=== PATIENT | male | born 1995 | race Caucasian/White ===

== ENCOUNTER 2020-02-20 14:12 | Outpatient (REF) | payer OTHER, SELFPAY | END 2020-02-20 14:13 | disposition home or self-care (01) | LOC: HO.HMGCLDS 14:12 | PROVIDERS: PCP Internal Medicine; Visit Provider Internal Medicine | DX: Z20.828 Contact with and (suspected) exposure to other viral communicable diseases (principal) | CPT/HCPCS: C9803; U0003 ==

== ENCOUNTER 2020-11-05 14:28 | Outpatient (REF) | payer OTHER, SELFPAY ==
[2020-11-05 15:27] LABS: Hematocrit 44.6 % (42-52); Hemoglobin 15.2 g/dl (14.0-18.0); Mean Corpuscular HGB Conc 34.1 g/dl (31.0-36.0); Mean Corpuscular Hemoglobin 29.9 pg (27.0-33.0); Mean Corpuscular Volume 87.8 fL (80-98); Mean Platelet Volume 9.6 fL (9.4-12.4); Platelet Count 264 X10*3/uL (160-400); Red Blood Count 5.08 X10*6/uL (4.60-5.80); Red Cell Distribution Width 12.1 % (11.0-16.0); White Blood Count 4.8 X10*3/uL (4.8-10.8)
[2020-11-05 15:48] LABS: Alanine Aminotransferase 28 U/L (0-40); Albumin Level 4.6 g/dL (3.5-5.0); Alkaline Phosphatase 62 U/L (39-117); Anion Gap 12 (12-20); Aspartate Amino Transferase 25 U/L (5-37); Bilirubin Direct 0.3 mg/dL (0.0-0.5); Bilirubin Total 0.8 mg/dL (0.0-1.0); Blood Urea Nitrogen 10 mg/dL (9-16); Calcium 10.1 mg/dL (8.4-10.2); Carbon Dioxide 30 mmol/L (22-29); Chloride 106 mmol/L (96-108); Estimated Glomerular Filt Rate > 60; Glucose Random 95 mg/dL (60-115); Potassium 5.5 mmol/L (3.3-5.1); Sodium 142 mmol/L (135-145); Total Protein 7.3 g/dL (6.5-8.0)
[2020-11-05 15:54] LABS: Glucose Urine UA NEG (NEG); Leukocyte Esterase Urine NEG (NEG); Nitrite Urine NEG (NEG); Specific Gravity - Urine >= 1.030 (1.005-1.025); UACC Culture Trigger NO; Urine Blood NEG (NEG); Urine Ketones NEG (NEG); Urine Protein 1+ MG/DL (NEG-TRACE)
[2020-11-05 15:57] LABS: Appearance Urine HAZY; Color Urine DARK YELLOW
[2020-11-05 16:01] LABS: Bacteria Urine TRACE /LPF; Mucus Urine 3+ /LPF; RBC Urine 0-2 /HPF (0); Sperm Urine NOTED; Squamous Epithelial Cell Urine TRACE /LPF; WBC Urine 0 /HPF (0-4)
[2020-11-06 08:16] LABS: HBc Num1 0.18 S/CO (0.00-0.79); HBsAGNum1 0.19 S/CO (0.00-0.99); Hepatitis B Core Antibody Nonreactive (Nonreactive); Hepatitis B Surface Antigen Negative (Negative); ~HepC Num1 0.11 S/CO (0.00-0.79); ~Hepatitis C Antibody Nonreactive (Nonreactive)
[2020-11-06 08:30] LABS: HBS Num1 1.26 mIU/mL (0-7.99); ~Hepatitis B Surface Antibody NONREACTIVE (Nonreactive)
== END 2020-11-05 14:29 | disposition home or self-care (01) ==
LOC: HO.XRAY 14:28
PROVIDERS: PCP Physician Assistant; Visit Provider Physician Assistant
DX: Z01.84 Encounter for antibody response examination (principal); Z11.59 Encounter for screening for other viral diseases; Z11.3 Encounter for screening for infections with a predominantly sexual mode of transmission; R10.9 Unspecified abdominal pain; I10 Essential (primary) hypertension
CPT/HCPCS: 36415; 80048; 80076; 81001; 85027; 86704; 86706; 86803; 87340

== ENCOUNTER 2022-04-21 15:14 | Emergency (ER) | payer OTHER, SELFPAY ==
--- NOTE | ~2022-04-21 | XR_ITS ---
EXAMINATION: XR CHEST CLINICAL INFORMATION: Shortness of breath COMPARISON: X-ray 05/19/2019 TECHNIQUE: 2 views of the chest were obtained. FINDINGS: Cardiomediastinal silhouette is within normal limits. Central vasculature is within normal limits, similar to previous. There is hazy opacity in the medial aspect of the right lung base, which may reflect infiltrate. No dense consolidation left lung. No effusion, edema or pneumothorax. Mild dorsal spine degeneration. XR/XR chest 2V IMPRESSION: Hazy opacity in the medial aspect of the right lung base, could represent developing airspace disease. Recommendation is for a follow-up chest series to be obtained following treatment and/or resolution of symptoms to assure resolution of this appearance.
--- NOTE | 2022-04-21 15:31 | ECG_ITS ---
Test Reason : DIZZINESS Blood Pressure : / mmHG Vent. Rate : 079 BPM Atrial Rate : 079 BPM P-R Int : 140 ms QRS Dur : 090 ms QT Int : 364 ms P-R-T Axes : 062 078 034 degrees QTc Int : 417 ms Normal sinus rhythm with sinus arrhythmia Normal ECG No previous ECGs available Referred By: Odessa Hawkins Electronically Signed By:ARGENIS FUNEZ
--- NOTE | 2022-04-21 15:32 | ED.GENADULT ---
HPI - General Adult General Chief complaint: General Medical Stated complaint: SOB Dizzy Weak Time Seen by Provider: 04/21/22 22:11 Related Data Previous Rx's Medication Instructions Recorded albuterol sulfate 90 mcg/actuation 2 puff inhalation Q6H PRN 07/04/21 aerosol inhaler (ProAir HFA) shortness of breath or wheezing 30 days #8.5 grams lorazepam 1 mg tablet (Ativan) 1 mg PO BEDTIME PRN anxiety #20 04/21/22 tabs meclizine 25 mg tablet 25 mg PO TID 7 days #21 tabs 04/23/22 Allergies Allergy/AdvReac Type Severity Reaction Status Date / Time stone fruit Allergy Swelling Uncoded 04/23/22 11:14 [facility] Past Medical History Medical History Anxiety Dyspnea Major depressive disorder Surgical History No pertinent past surgical history Family History Family History Father No problems noted. Mother Multiple sclerosis Other Substance use disorder Social History Social History Housing: Apartment Alcohol intake: current Alcohol intake frequency: holidays/special occasions only Alcohol type: beer, wine and hard liquor Patient Tobacco Use Status: Former Tobacco user (one year) Quit Date: one year ago Tobacco use type: Smokeless Tobacco e-Cigarette/Vaping Use: Currently Using Second Hand Smoke Exposure: No Substance Use Type: Marijuana service: No Current occupational status: unemployed Cognitive needs: No Hearing needs: No Vision needs: No Physical Exam ED Vital Signs: BMI result Body Mass Index 24.3 Course Course Course Narrative: RME - 27 yo male with history of asthma, anxiety, depression, ADD presenting with acute onset of feeling like he was going to pass out while he was standing at work talking with a coworker. Feels lightheaded, like the room is spinning, dizziness, SOB, palpitations. Was dizzy all week. Feels like symptoms are worsening. VSS in triage. Labs and EKG ordered. Medications Administered Discontinued Medications Generic Name Dose Route Start Last Admin Trade Name Freq PRN Reason Stop Dose Admin Lorazepam 0.5 mg 04/21/22 22:23 04/21/22 22:34 Lorazepam 0.5 Mg Tablet PO 04/21/22 22:24 Not Given ONCE ONE Medical Decision Making Lab Data 04/21/22 17:09 04/21/22 17:09 Labs: Lab Results 04/21/22 04/21/22 Range/Units 17:09 17:09 WBC 10.7 (4.8-10.8) X10*3/uL RBC 5.59 (4.60-5.80) X10*6/uL Hgb 16.4 (14.0-18.0) g/dl Hct 48.1 (42.0-52.0) % MCV 86.0 (80.0-98.0) fL MCH 29.3 (27.0-33.0) pg MCHC 34.1 (31.0-36.0) g/dl RDW 12.1 (11.0-16.0) % Plt Count 318 (160-400) X10*3/uL MPV 9.6 (9.4-12.4) fL Immature Gran % (Auto) 0.9 H (0.0-0.4) % Neut % (Auto) 79.2 H (45-73) % Lymph % (Auto) 11.0 L (20-40) % [place] % (Auto) 7.2 (2-11) % Eos % (Auto) 1.0 (0-4) % Baso % (Auto) 0.7 (0-2) % Lymph # (Auto) 1.2 (1.2-4.9) X10*3/uL [place] # (Auto) 0.8 (0.1-1.2) X10*3/uL Eos # (Auto) 0.1 (0.0-0.4) X10*3/uL Baso # (Auto) 0.1 (0.0-0.2) X10*3/uL Abs Immat Gran (auto) 0.10 H (0.00-0.03) X10*3/uL Absolute Neuts (auto) 8.5 H (2.0-8.3) x10*3/uL Absolute Nucleated RBC 0.000 (0.0-0.012) X10*3/uL Nucleated RBC % (auto) 0.0 (0.0-0.2) /100WBC Sodium 140 (135-145) mmol/L Potassium 4.8 (3.3-5.1) mmol/L Chloride 102 (96-108) mmol/L Carbon Dioxide 29 (22-29) mmol/L Anion Gap 14 (12-20) BUN 11 (9-16) mg/dL Creatinine 0.83 (0.5-1.4) mg/dL Estim Creat Clear Calc 139.2 Estimated GFR > 60 Random Glucose 91 (60-115) mg/dL Calcium 10.0 (8.4-10.2) mg/dL Magnesium 2.0 (1.6-2.6) mg/dL Total Bilirubin 0.7 (0.0-1.0) mg/dL Direct Bilirubin 0.2 (0.0-0.5) mg/dL AST 22 (5-37) U/L ALT 22 (0-40) U/L Alkaline Phosphatase 79 (39-117) U/L Total Protein 7.4 (6.5-8.0) g/dL Albumin 4.7 (3.5-5.0) g/dL TSH 1.58 (0.32-4.0) uIU/mL Discharge Plan Discharge Clinical Impression: Anxiety Patient Disposition: Home, Self-Care Instructions: Generalized Anxiety Disorder (ED) Additional Instructions: Rest at home take medication as prescribed every night as needed for sleep and anxiety Follow-up with PCP Prescriptions: New lorazepam [Ativan] 1 mg tablet 1 mg PO BEDTIME PRN (Reason: anxiety) Qty: 20 0RF No Action albuterol sulfate [ProAir HFA] 90 mcg/actuation HFA aerosol inhaler 2 puff inhalation Q6H PRN (Reason: shortness of breath or wheezing) 30 Days Qty: 8.5 2RF Rx Instructions: 2 puffs every 6 hrs as needed for shortness of breath meclizine 25 mg tablet 25 mg PO TID 7 Days Qty: 21 0RF Interventions: ED Discharge Assessment Last Done: 04/21/22 22:37 Discharge Date/Time: 04/21/22 22:39
[2022-04-21 15:33] VITALS: BP 144/80; PULSE 80; RESP 20; TEMP 36.2; O2SAT 100; BMI 24.3
[2022-04-21 17:25] LABS: MANUAL DIFF FLAG NO
[2022-04-21 17:43] LABS: Basophils Absolute Auto 0.1 X10*3/uL (0.0-0.2); Basophils Percent Auto 0.7 % (0-2); Eosinophils Absolute Auto 0.1 X10*3/uL (0.0-0.4); Hematocrit 48.1 % (42.0-52.0); Hemoglobin 16.4 g/dl (14.0-18.0); Imm Gran Pct Auto 0.9 % (0.0-0.4); Lymphocytes Absolute Auto 1.2 X10*3/uL (1.2-4.9); Mean Corpuscular HGB Conc 34.1 g/dl (31.0-36.0); Mean Corpuscular Hemoglobin 29.3 pg (27.0-33.0); Mean Platelet Volume 9.6 fL (9.4-12.4); Monocytes Absolute Auto 0.8 X10*3/uL (0.1-1.2); Monocytes Percent Auto 7.2 % (2-11); Neutrophils Absolute Auto 8.5 x10*3/uL (2.0-8.3); Neutrophils Percent Auto 79.2 % (45-73); Platelet Count 318 X10*3/uL (160-400); Red Blood Count 5.59 X10*6/uL (4.60-5.80); Red Cell Distribution Width 12.1 % (11.0-16.0); White Blood Count 10.7 X10*3/uL (4.8-10.8)
[2022-04-21 17:54] LABS: Alanine Aminotransferase 22 U/L (0-40); Albumin Level 4.7 g/dL (3.5-5.0); Alkaline Phosphatase 79 U/L (39-117); Anion Gap 14 (12-20); Aspartate Amino Transferase 22 U/L (5-37); Bilirubin Direct 0.2 mg/dL (0.0-0.5); Bilirubin Total 0.7 mg/dL (0.0-1.0); Blood Urea Nitrogen 11 mg/dL (9-16); Carbon Dioxide 29 mmol/L (22-29); Chloride 102 mmol/L (96-108); Creatinine Clr Calc Pharmacy 139.2; Estimated Glomerular Filt Rate > 60; Glucose Random 91 mg/dL (60-115); Potassium 4.8 mmol/L (3.3-5.1); Sodium 140 mmol/L (135-145); Total Protein 7.4 g/dL (6.5-8.0)
[2022-04-21 18:07] LABS: TSH reflex Free T4 1.58 uIU/mL (0.32-4.0)
[2022-04-21 21:11] VITALS: BP 134/72; PULSE 72; RESP 16; TEMP 36.8; O2SAT 100
--- NOTE | 2022-04-21 22:27 | ED.GENADULT ---
HPI - General Adult General Chief complaint: General Medical Stated complaint: SOB Dizzy Weak Time Seen by Provider: 04/21/22 22:11 Source: patient Mode of arrival: ambulatory History of Present Illness HPI narrative: Patient with history of anxiety was at work earlier today felt dizzy shaky anxious felt like passing out. Patient denied any cough or fever patient was seen in the triage and level was done which was negative saturating 100% on room air patient has been seen by his PCP earlier and was given Atarax which is not working Related Data Previous Rx's Medication Instructions Recorded albuterol sulfate 90 mcg/actuation 2 puff inhalation Q6H PRN 07/04/21 aerosol inhaler (ProAir HFA) shortness of breath or wheezing 30 days #8.5 grams hydroxyzine HCl 25 mg tablet 25 mg PO BEDTIME 30 days #30 tabs 09/15/21 lorazepam 1 mg tablet (Ativan) 1 mg PO BEDTIME PRN anxiety #20 04/21/22 tabs Allergies Allergy/AdvReac Type Severity Reaction Status Date / Time stone fruit Allergy Swelling Uncoded 04/21/22 15:35 Review of Systems Review of Systems: Yes all other systems are reviewed and are negative [facility] Past Medical History Medical History Anxiety Dyspnea Major depressive disorder Surgical History No pertinent past surgical history Family History Family History Father No problems noted. Mother Multiple sclerosis Other Substance use disorder Social History Social History Housing: Apartment Alcohol intake: current Alcohol intake frequency: holidays/special occasions only Alcohol type: beer, wine and hard liquor Patient Tobacco Use Status: Former Tobacco user (one year) Quit Date: one year ago Tobacco use type: Smokeless Tobacco Smoked in Last 30 Days: Yes e-Cigarette/Vaping Use: Currently Using Second Hand Smoke Exposure: No Use of substances other than those prescribed or required for medical reasons: Yes Substance Use Type: Marijuana Substance Use Frequency: Daily Advance Directives: No Advance Directives Information Provided: Yes service: No Current occupational status: unemployed Cognitive needs: No Hearing needs: No Vision needs: No Physical Exam ED Vital Signs: Vital Signs - 24 hr 04/21/22 15:33 04/21/22 21:11 Temperature 97.1 F 98.3 F Pulse Rate 80 72 Respiratory Rate 20 16 Blood Pressure 144/80 H 134/72 Pulse Oximetry 100 100 Oxygen Delivery Method Room Air Room Air BMI result Body Mass Index 24.3 Appearance: Alert. Oriented X3. No acute distress. Anxious Eyes: PERRLA, No Nystagmus ENT: Pharynx normal. Oral Mucosa moist Neck: Normal inspection. Neck supple. CVS: Normal heart rate and rhythm. Pulses normal. Respiratory: No respiratory distress. Equal air entry bilateral, no wheezing/rales/rhonchi Abdomen: Soft and nontender. Bowel sounds are present, no mass palpable, no CVA tenderness Skin: Skin warm and dry. Normal skin color. Normal skin turgor. Extremities: No lower extremity edema. No calf tenderness Neuro: Oriented X 3. No motor deficit. No sensory deficit.No cerebellar signs , cranial nerves II-XII intact Medical Decision Making Lab Data MDM Lab Attestation statement: I reviewed the patient's lab results. 04/21/22 17:09 04/21/22 17:09 Labs: Lab Results 04/21/22 04/21/22 Range/Units 17:09 17:09 WBC 10.7 (4.8-10.8) X10*3/uL RBC 5.59 (4.60-5.80) X10*6/uL Hgb 16.4 (14.0-18.0) g/dl Hct 48.1 (42.0-52.0) % MCV 86.0 (80.0-98.0) fL MCH 29.3 (27.0-33.0) pg MCHC 34.1 (31.0-36.0) g/dl RDW 12.1 (11.0-16.0) % Plt Count 318 (160-400) X10*3/uL MPV 9.6 (9.4-12.4) fL Immature Gran % (Auto) 0.9 H (0.0-0.4) % Neut % (Auto) 79.2 H (45-73) % Lymph % (Auto) 11.0 L (20-40) % [place] % (Auto) 7.2 (2-11) % Eos % (Auto) 1.0 (0-4) % Baso % (Auto) 0.7 (0-2) % Lymph # (Auto) 1.2 (1.2-4.9) X10*3/uL [place] # (Auto) 0.8 (0.1-1.2) X10*3/uL Eos # (Auto) 0.1 (0.0-0.4) X10*3/uL Baso # (Auto) 0.1 (0.0-0.2) X10*3/uL Abs Immat Gran (auto) 0.10 H (0.00-0.03) X10*3/uL Absolute Neuts (auto) 8.5 H (2.0-8.3) x10*3/uL Absolute Nucleated RBC 0.000 (0.0-0.012) X10*3/uL Nucleated RBC % (auto) 0.0 (0.0-0.2) /100WBC Sodium 140 (135-145) mmol/L Potassium 4.8 (3.3-5.1) mmol/L Chloride 102 (96-108) mmol/L Carbon Dioxide 29 (22-29) mmol/L Anion Gap 14 (12-20) BUN 11 (9-16) mg/dL Creatinine 0.83 (0.5-1.4) mg/dL Estim Creat Clear Calc 139.2 Estimated GFR > 60 Random Glucose 91 (60-115) mg/dL Calcium 10.0 (8.4-10.2) mg/dL Magnesium 2.0 (1.6-2.6) mg/dL Total Bilirubin 0.7 (0.0-1.0) mg/dL Direct Bilirubin 0.2 (0.0-0.5) mg/dL AST 22 (5-37) U/L ALT 22 (0-40) U/L Alkaline Phosphatase 79 (39-117) U/L Total Protein 7.4 (6.5-8.0) g/dL Albumin 4.7 (3.5-5.0) g/dL TSH 1.58 (0.32-4.0) uIU/mL Independent Interpretation I performed an independent interpretation of an: EKG Interpretation: Normal sinus rhythm heart rate 79 beats per minute normal intervals normal axis no acute ST changes impression normal EKG Discharge Plan Discharge Clinical Impression: Anxiety Patient Disposition: Home, Self-Care Instructions: Generalized Anxiety Disorder (ED) Additional Instructions: Rest at home take medication as prescribed every night as needed for sleep and anxiety Follow-up with PCP Prescriptions: New lorazepam [Ativan] 1 mg tablet 1 mg PO BEDTIME PRN (Reason: anxiety) Qty: 20 0RF No Action albuterol sulfate [ProAir HFA] 90 mcg/actuation HFA aerosol inhaler 2 puff inhalation Q6H PRN (Reason: shortness of breath or wheezing) 30 Days Qty: 8.5 2RF Rx Instructions: 2 puffs every 6 hrs as needed for shortness of breath hydroxyzine HCl 25 mg tablet 25 mg PO BEDTIME 30 Days Qty: 30 0RF
== END 2022-04-21 22:39 | disposition home or self-care (01) ==
PROVIDERS: Physician Assistant; Emergency Provider Internal Medicine; PCP Physician Assistant
DX: R06.02 Shortness of breath (principal); R42 Dizziness and giddiness; F41.1 Generalized anxiety disorder; F43.0 Acute stress reaction; Z79.899 Other long term (current) drug therapy; Z87.891 Personal history of nicotine dependence
CPT/HCPCS: 36415; 71046; 80048; 80076; 83735; 84443; 85025; 93005; 99283; 99284

== ENCOUNTER 2022-05-08 12:53 | Outpatient (REF) | payer OTHER, SELFPAY ==
[2022-05-08 14:05] LABS: MANUAL DIFF FLAG NO
[2022-05-08 14:09] LABS: Basophils Absolute Auto 0.1 X10*3/uL (0.0-0.2); Basophils Percent Auto 1.4 % (0-2); Eosinophils Absolute Auto 0.3 X10*3/uL (0.0-0.4); Eosinophils Percent Auto 6.2 % (0-4); Hematocrit 48.1 % (42.0-52.0); Hemoglobin 16.4 g/dl (14.0-18.0); Imm Gran Abs Auto 0.01 X10*3/uL (0.00-0.03); Imm Gran Pct Auto 0.2 % (0.0-0.4); Lymphocytes Absolute Auto 1.4 X10*3/uL (1.2-4.9); Lymphocytes Percent Auto 28.1 % (20-40); Mean Corpuscular HGB Conc 34.1 g/dl (31.0-36.0); Mean Corpuscular Hemoglobin 29.9 pg (27.0-33.0); Mean Corpuscular Volume 87.8 fL (80.0-98.0); Monocytes Absolute Auto 0.5 X10*3/uL (0.1-1.2); Neutrophils Absolute Auto 2.7 x10*3/uL (2.0-8.3); Neutrophils Percent Auto 55.1 % (45-73); Platelet Count 297 X10*3/uL (160-400); Red Blood Count 5.48 X10*6/uL (4.60-5.80); Red Cell Distribution Width 12.2 % (11.0-16.0)
[2022-05-08 14:32] LABS: Anion Gap 11 (12-20); Blood Urea Nitrogen 10 mg/dL (9-16); Calcium 9.5 mg/dL (8.4-10.2); Carbon Dioxide 28 mmol/L (22-29); Chloride 105 mmol/L (96-108); Estimated Glomerular Filt Rate > 60; Glucose Random 93 mg/dL (60-115); Potassium 4.7 mmol/L (3.3-5.1); Sodium 139 mmol/L (135-145)
== END 2022-05-08 12:54 | disposition home or self-care (01) ==
LOC: HO.HMGCLDS 12:53
PROVIDERS: PCP Physician Assistant; Visit Provider Nurse Practitioner Family
DX: R00.2 Palpitations (principal)
CPT/HCPCS: 36415; 80048; 85025

== ENCOUNTER → 2022-06-11 11:21 | Outpatient (REF) | payer OTHER, SELFPAY ==
--- NOTE | 2022-06-11 11:25 | HM_ITS ---
Conclusion: 1. Patient was monitored for total period of 5 days and 22 hours 2. Baseline was normal sinus rhythm with average heart of 67 beats per minute with lowest heart rate of 43 beats per minute 3. No significant pauses noted 4. Occasional PACs with total burden of 0.3% 5. Patient reported symptoms 5 times including palpitations, lightheadedness and heart pounding that correlated with sinus rhythm or sinus bradycardia MTDD
== END ==
LOC: HO.CARD 11:21
PROVIDERS: Visit Provider Nurse Practitioner Family
DX: R00.2 Palpitations (principal); R42 Dizziness and giddiness
CPT/HCPCS: 93242

== ENCOUNTER 2022-12-21 12:40 | Outpatient (AMB) | payer OTHER, SELFPAY ==
[2022-12-21 12:49] VITALS: BP 120/76; PULSE 52; TEMP 36.6; O2SAT 98; BMI 26.9
--- NOTE | 2022-12-21 12:49 | MHC.OFFWIV ---
Intake Vital Signs 12/21/22 12:49 Height 5 ft 10 in Weight 187 lb 6 oz BMI 26.9 BP 120/76 Blood Pressure Location Rt brachial Position Sitting Pulse 52 Pulse Source Pulse Oximeter Temp 97.8 F Temp Source Temporal Artery Scan Pulse Oximetry (%) 98 Intake Visit Reasons: EP, headache,congestion,sore throat ([phone]) Intake Note: pt is here for c/o headache, sinus pressure, dry throat Patient Tobacco Use Status: Former Tobacco user (one year) Quit Date: one year ago Allergies stone fruit Allergy (Uncoded 12/21/22 13:25) Swelling Medication List - Last Reconciled 12/21/22 by Blas Burt MD albuterol sulfate 90 mcg/actuation (Ventolin HFA) 2 puffs inhalation Q6H PRN azelastine-fluticasone 137-50 mcg/spray 1 spray intranasal BID hydroxyzine HCl 25 mg PO BEDTIME 15 days lorazepam 0.5 mg PO BEDTIME 10 days minoxidil 2% 1 mL topical DAILY 30 days Do you need a note to return to daycare/school/sports/work: Yes HPI EP, headache,congestion,sore throat ([phone]) HPI Details Patient presents for a sick visit. Reporting symptoms of sinus congestion, sore throat and difficulty swallowing. Low-grade fever. No family member is sick. No recent travel. Patient reports symptoms of malaise and fatigue. [facility] Medical History Anxiety Dyspnea Major depressive disorder Surgical History No pertinent past surgical history Family History Father No problems noted. Mother Multiple sclerosis Other Substance use disorder Social History Housing: Apartment Alcohol intake: current Alcohol intake frequency: holidays/special occasions only Alcohol type: beer, wine and hard liquor Patient Tobacco Use Status: Former Tobacco user (one year) Quit Date: one year ago Tobacco use type: Smokeless Tobacco e-Cigarette/Vaping Use: Currently Using Second Hand Smoke Exposure: No Substance Use Type: Marijuana service: No Current occupational status: unemployed Cognitive needs: No Hearing needs: No Vision needs: No Physical Exam Vital Signs: Last Vital Signs Temp 97.8 F 12/21/22 12:49 Pulse 52 12/21/22 12:49 BP 120/76 12/21/22 12:49 Pulse Ox 98 12/21/22 12:49 BMI result Body Mass Index 26.9 Const General: cooperative and healthy appearing Nutritional Appearance: well nourished Orientation/consciousness: patient oriented x3 Limitations: no limitations HEENT Head: Yes normal to inspection Eyes General: appearance normal, both eyes and all related structures Neck Neck: Yes normal visual inspection Chest Chest palpation & inspection: normal palpation of entire chest wall Resp Effort & Inspection: normal respiratory effort Neuro General: patient oriented x3 Assessment & Plan Assessment & Plan (1) Upper respiratory tract infection: Code(s): J06.9 - Acute upper respiratory infection, unspecified Plan: Note for work given. Viral illness. No antibiotics needed Coding Level of Care Code Est Pt Level 3 (14944) Diagnoses Upper respiratory tract infection J06.9
== END 2022-12-21 14:08 | disposition home or self-care (01) ==
PROVIDERS: PCP Physician Assistant; Visit Provider Internal Medicine
DX: J06.9 Acute upper respiratory infection, unspecified (principal)
CPT/HCPCS: 99213

== ENCOUNTER 2022-12-31 15:39 | Outpatient (AMB) | payer OTHER, SELFPAY ==
--- NOTE | 2022-12-31 15:43 | MHC.PC.OV ---
Vital Signs 12/31/22 15:44 Height 5 ft 10 in Weight 185 lb 8 oz BMI 26.6 BP 124/60 Blood Pressure Location Lt brachial Position Sitting Pulse 71 Pulse Source Pulse Oximeter Pulse Oximetry (%) 98 Oxygen Delivery Method Room Air Intake Visit Reasons: f/u CITLALY/ Insomnia Intake Note: Patient is here to follow up on CITLALY, Insomnia. Complaint of sinus issues, symptoms are headaches, mild fever last week, chills, running nose with congestion. Neg for covid on 12/26/22. 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 Patient has a past medical history significant for major depressive disorder, generalized anxiety disorder, insomnia. Patient has been suffering with a sinus infection over the last 2 weeks. Has been seen by the walk-in clinic and was told to take ppqj-zbm-iznniyl medications. He has done COVID test were negative. Has missed many days of work due to not feeling well. .. ADD: Has establish care with a psychiatrist whom prescribed him Wellbutrin though had side effect to this medication has discontinued. Will continue his follow-up with Psychiatry to try to treat his ADD. .. Nicotine dependency: Continues to use vapor cigarettes. He is interested getting off of this and will like to try nicotine replacement. .. anxiety: Continues to have some trouble sleeping. He reports hydroxyzine has been very helpful. Also smokes marijuana which has been helpful to reduce his anxiety and depression. Of note does use lorazepam 0.5 mg on a very limited basis for panic attacks. [facility] Medical History Major depressive disorder Anxiety Dyspnea Surgical History No pertinent past surgical history Family History Father No problems noted. Mother Multiple sclerosis Other Substance use disorder Social History Housing: Apartment Alcohol intake: current Alcohol intake frequency: holidays/special occasions only Alcohol type: beer, wine and hard liquor Patient Tobacco Use Status: Former Tobacco user (one year) Quit Date: one year ago Tobacco use type: Smokeless Tobacco e-Cigarette/Vaping Use: Currently Using Frequency of e-Cigarette/Vaping Use: daily Second Hand Smoke Exposure: No Substance Use Type: Marijuana service: No Current occupational status: unemployed Cognitive needs: No Hearing needs: No Vision needs: Yes (glasses) Questionnaire Thrive Questionnaire Date Thrive assessed: 05/14/22 CITLALY-7 AMB Questionnaire CITLALY-7 Date CITLALY - 7 assessed: 06/17/22 Source: Developed by Drs. Skip Tavarez, Liliam Barney, Tejas Nicholas and colleagues, with an educational kelvin from [employer]. Review of Systems Const Reports headache(s) Eyes Denies loss of vision ENT Denies vertigo, Denies dizziness, Reports facial pain, Reports headache(s) and Denies sore throat Card Denies chest pain, Denies leg edema and Denies lightheadedness Resp Denies cough, Denies hemoptysis and Denies wheezing GI Denies abdominal pain, Denies melena, Denies constipation, Denies diarrhea and Denies vomiting Denies dysuria, Denies urinary frequency and Denies urinary urgency Musc Denies arthralgias, Denies joint swelling, Denies numbness and Denies tingling Neuro Denies Abnormal speech present, Denies behavioral changes, Denies vertigo, Denies dizziness, Reports headache(s), Denies loss of vision, Denies memory loss, Denies numbness and Denies tingling Psych Denies anxiety, Denies behavioral changes, Denies depression, Denies memory loss and Denies panic attacks Beau/Lymph Denies easy bleeding and Denies easy bruising Aller/Immun Denies wheezing Physical exam (Primary Care) Vital Signs: Last Vital Signs Pulse 71 12/31/22 15:44 BP 124/60 12/31/22 15:44 Pulse Ox 98 12/31/22 15:44 Oxygen Delivery Method Room Air 12/31/22 15:44 BMI result Body Mass Index 26.6 Tobacco/Smoking Status: Tobacco use Status Tobacco use date assessed 12/31/22 12/31/22 15:49 Patient Tobacco Use Status Former Tobacco user (one 12/31/22 15:49 year) Tobacco use type Smokeless Tobacco 12/31/22 15:49 e-Cigarette/Vaping Use Currently Using 12/31/22 15:49 Thrive Assessment: Date of Thrive Assessment Date Thrive assessed 05/14/22 12/31/22 15:49 Const General: healthy appearing, no acute distress, alert and awake Nutritional Appearance: well nourished Orientation/consciousness: oriented to person, oriented to place and oriented to time HENMT Ears: TM's normal bilaterally General nose exam: Normal nasal mucous membranes and turbinates present Eyes Conjunctivae: conjunctivae normal Sclerae: sclerae normal Pupils: Equal, round and reactive pupils present Neck Neck: Yes no lymphadenopathy and Yes no JVD Thyroid: Thyroid normal Carotids: no bruits Resp Effort & Inspection: normal respiratory effort and not tachypneic Auscultation: no crackles, no rales, no rhonchi and no wheezes Cardio Rate: regular rate Rhythm: regular rhythm Heart sounds: no murmurs and normal S1 and S2 GI Palpation (GI): Soft to palpation, nontender, no hepatomegaly and no splenomegaly Auscultation: normal bowel sounds Skin General skin exam: no rashes or lesions noted and dry skin Neuro General: oriented to person, oriented to place and oriented to time Cranial nerves: Yes Equal, round and reactive pupils present Speech: No Abnormal speech present Gait exam (Neuro): Normal gait present Motor exam (neuro): no tremor noted Extrem Right upper extremity: full ROM Left upper extremity: full ROM Right lower extremity: full ROM; no edema Left lower extremity: full ROM; no edema Psych Mental Status: mental status grossly normal Speech and movement: Normal speech and movement present Affect: normal affect Attitude: cooperative Thought process: Normal thought process present Office Procedures Flu Questionnaire Does the patient have a severe egg allergy?: No Does the patient have severe life threatening allergies?: No Does the patient have a fever or illness today?: No Has the patient ever had Guillain-Gardner Syndrome?: No Has the patient ever had any past reaction to a flu shot?: No Immunizations flu vacc [id number] 6mos up(PF) 60 mcg(15 mcgx4)/0.5 mL IM syringe Performing Provider: Tony Garibay PA-C Performing Location: [facility] Administered by: SUSY Martinez on 12/31/22 15:49 Dose Route Admin Location Dispensed Lot Number Expiration Date NDC Dietary Aide 0.5 mL IM Left Deltoid 0.5 mL [id number] 09/26/23 57582-887-27 [employer] VIS Given Date VIS Provided VIS Publication Date 12/31/22 Single Vaccine 20 Eligibility Eligibility Date Funding Source Not [facility] Eligible 12/31/22 Private Assessment and Plan Assessment & Plan (1) Sinusitis: Code(s): J32.9 - Chronic sinusitis, unspecified Qualifiers: Chronicity: acute Recurrence: non-recurrent Sinusitis location: frontal Qualified Code(s): J01.10 - Acute frontal sinusitis, unspecified Plan: Patient continues to sinusitis. Has been using qteu-wvv-klorlvk medications without much relief. Has missed many days of work. Has been seen at walk-in clinic and was advised to take erbg-pga-yclidhr medication. Will treat with antibiotics due to the prolonged symptoms. (2) Nicotine dependence: Code(s): F17.200 - Nicotine dependence, unspecified, uncomplicated Qualifiers: Nicotine product type: other Substance use status: unspecified nicotine-induced disorder Qualified Code(s): F17.299 - Nicotine dependence, other tobacco product, with unspecified nicotine-induced disorders Plan: Continues to do vaporized nicotine. He would like to try to get off of this. Willing to do nicotine gum. (3) ADD (attention deficit disorder): Code(s): F98.8 - Other specified behavioral and emotional disorders with onset usually occurring in childhood and adolescence Qualifiers: Hyperactivity presence: absent Qualified Code(s): F98.8 - Other specified behavioral and emotional disorders with onset usually occurring in childhood and adolescence Plan: Has stops care with a psychiatrist whom has started patient on Wellbutrin though had side effect and self discontinued. Will follow-up with Psychiatry again to continue discussing his mental health and ADD disorder per. Orders: Orders Influenza [id number] Immunization 12/31/22 Z23 - Encounter for immunization Comprehensive [place]. Panel Fast 12/31/22 Z13.1 - Encounter for screening for diabetes mellitus Medications: New amoxicillin 500 mg PO Q8H 7 days 21 caps 0RF J01.10 - Acute frontal sinusitis, unspecified prednisone 20 mg PO DAILY 4 days 4 tabs 0RF J01.10 - Acute frontal sinusitis, unspecified nicotine (polacrilex) 2 mg buccal Q2H 15 days PRN 110 ea 0RF nicotine cravings F17.200 - Nicotine dependence, unspecified, uncomplicated, F17.299 - Nicotine dependence, other tobacco product, with unspecified nicotine-induced disorders Coding Level of Care Code Est Pt Level 4 (92483) Diagnoses Acute non-recurrent frontal sinusitis J01.10 Chronicity: acute Recurrence: non-recurrent Sinusitis location: frontal Other tobacco product nicotine dependence with nicotine-induced disorder F17.299 Nicotine product type: other Substance use status: unspecified nicotine-induced disorder Attention deficit disorder (ADD) without hyperactivity F98.8 Hyperactivity presence: absent
[2022-12-31 15:44] VITALS: BP 124/60; PULSE 71; O2SAT 98; BMI 26.6
== END 2022-12-31 16:12 | disposition home or self-care (01) ==
PROVIDERS: PCP Physician Assistant; Visit Provider Physician Assistant
DX: Z23 Encounter for immunization (principal)
CPT/HCPCS: 90471; 90686; 99214

== ENCOUNTER 2023-04-19 15:45 | Outpatient (AMB) | payer OTHER, SELFPAY ==
--- NOTE | 2023-04-19 16:02 | A.OFFPC_ITS ---
Vital Signs 04/19/23 16:10 Height 5 ft 10 in Weight 187 lb 2 oz BMI 26.8 BP 138/88 Blood Pressure Location Lt brachial Position Sitting Pulse 60 Pulse Source Pulse Oximeter Pulse Oximetry (%) 100 Oxygen Delivery Method Room Air Intake Visit Reasons: Physical exam Allergies atomoxetine [From Strattera] Adverse Reaction (Intermediate, Verified 04/19/23 16:48) Insomnia bupropion [From Wellbutrin] Adverse Reaction (Intermediate, Verified 12/31/22 15:56) Agitated escitalopram [From Lexapro] Adverse Reaction (Intermediate, Verified 04/19/23 16:48) Insomnia sertraline [From Zoloft] Adverse Reaction (Intermediate, Verified 04/19/23 16:48) Nausea trazodone Adverse Reaction (Intermediate, Verified 04/19/23 16:53) not effective stone fruit Allergy (Uncoded 12/31/22 15:44) Swelling Medication List - Last Reconciled 04/19/23 by Tony Garibay PA-C albuterol sulfate 90 mcg/actuation (Ventolin HFA) 2 puffs inhalation Q6H PRN azelastine-fluticasone 137-50 mcg/spray 1 spray intranasal BID hydroxyzine HCl 25 mg PO BEDTIME 15 days lorazepam 0.5 mg PO BEDTIME PRN 7 days nicotine (polacrilex) 2 mg buccal Q2H PRN 15 days Tobacco use date assessed: 12/31/22 HPI Physical exam HPI Details Patient is a 28-year-old male here today for annual physical. Patient has a past medical history significant for major depressive disorder, insomnia, anxiety. Concern--> reports having 2-3 episodes of lightheaded, dizziness and associated feeling that is somewhat short lived. He has noted these feelings over the last 2 months. Could be related to to being on and off psychiatric medications.. .. MENTAL HEALTH: Has establish care with a psychiatrist and has tried many different antidepressants (Lexapro, Wellbutrin, Zoloft) though had side effects. He was screen for ADHD and was told he may have a diagnosis of ADHD. He was to start Adderall 5 mg extended release though there needed to be a prior Auth. He does have documentation from his psychiatrist explaining the benefit that Corby might get from stimulant ADHD medication. Also he reports he is having trouble sleeping. Does use hydroxyzine which has been helpful for his anxiety. He is interested in a new medication to help him sleep. He is willing to try low-dose Seroquel before bed. Vaccines: Up-to-date with tetanus vaccine, COVID vaccine, flu vaccine [facility] Medical History Major depressive disorder Anxiety Dyspnea Surgical History No pertinent past surgical history Family History Father No problems noted. Mother Multiple sclerosis Other Substance use disorder Social History Housing: Apartment Alcohol intake: current Alcohol intake frequency: holidays/special occasions only Alcohol type: beer, wine and hard liquor Patient Tobacco Use Status: Former Tobacco user (one year) Quit Date: one year ago Tobacco use type: Smokeless Tobacco e-Cigarette/Vaping Use: Currently Using Second Hand Smoke Exposure: No Substance Use Type: Marijuana service: No Current occupational status: unemployed Cognitive needs: No Hearing needs: No Vision needs: Yes (glasses) Questionnaire PHQ-9 Over the last 2 weeks, how often have you been bothered by any of the following problems? 1. Little interest or pleasure in doing things: nearly every day 2. Feeling down, depressed, or hopeless: nearly every day 3. Trouble falling or staying asleep, or sleeping too much: nearly every day 4. Feeling tired or having little energy: nearly every day 5. Poor appetite or overeating: nearly every day 6. Feeling bad about yourself - or that you are a failure or have let yourself or your family down: several days 7. Trouble concentrating on things, such as reading the newspaper or watching television: nearly every day 8. Moving or speaking so slowly that other people could have noticed. Or the opposite - being so fidgety or restless that you have been moving around a lot more than usual: more than half the days 9. Thoughts that you would be better off or of hurting yourself in some way: several days Total score: 22 Depression Screening Interpretation: Positive Depression Screening Follow-up: Existing condition and In treatment Depression Screening Done: Yes 50987 - PHQ-9 Billing: Yes Source: Developed by Drs. Skip Tavarez, Liliam Barney, Tejas Nicholas and colleagues, with an educational kelvin from [employer]. Thrive Questionnaire Date Thrive assessed: 04/19/23 I am a: Patient What is your living situation today?: I have a steady place to live Within the past 12 months, did the food you bought not last and you didn't have the money to get more?: Never true Within the past 12 months, did you worry whether your food would run out before you got money to buy more?: Never true Do you have trouble paying for medicines?: No Do you have trouble getting transportation to medical appointments?: No Do you have trouble paying your heating and electricity bill?: No Do you have trouble taking care of your child, family member or friend?: No Do you have trouble with day-to-day activities such as bathing, preparing meals, shopping, managing finances, etc.?: No Are you currently unemployed and looking for a job?: No Are you interested in more education?: No Please select the resources that you would like help with: None Currently or been in a relationship where the following occur: no concerns reported THRIVE Score: 0 AUDIT C Alcohol Use Questionnaire (AUDIT-C) 1. How often do you have a drink containing alcohol?: Never 3. How often do you have six or more drinks on one occasion?: Never Total Score: 0 CITLALY-7 AMB Questionnaire CITLALY-7 Date CITLALY - 7 assessed: 04/19/23 Feeling nervous, anxious, or on edge: 2 = More than half the days Not being able to stop or control worryin = Nearly every day Worrying too much about different things: 2 = More than half the days Trouble relaxin = More than half the days Being so restless that it is hard to sit still: 2 = More than half the days Becoming easily annoyed or irritable: 2 = More than half the days Feeling afraid as if something awful might happen: 3 = Nearly every day Total CITLALY-7 score (0-4 normal; 5-9 mild; 10-14 moderate; 15-21 severe): 16 Source: Developed by Liliam Teague. Ector, Tejas Nicholas and colleagues, with an educational kelvin from [employer]. CITLALY-7 Assessment Billing CITLALY-7 Assessment Tool: CITLALY-7 Assessment 03201 Review of Systems Const Denies body aches, Denies chills, Denies excessive sweating, Denies fatigue, Denies fever(s) and Denies headache(s) Eyes Denies blurry vision ENT Denies dysphagia, Denies vertigo, Denies dizziness, Denies headache(s), Denies hearing loss and Denies tinnitus Card Denies chest pain, Denies chest pain with activity, Denies syncope, Denies irregular heart rhythm and Denies dyspnea Resp Denies chest congestion, Denies cough, Denies hemoptysis, Denies dyspnea and Denies wheezing GI Denies abdominal pain, Denies melena, Denies hematochezia, Denies coffee ground emesis, Denies dysphagia, Denies diarrhea, Denies nausea and Denies vomiting Denies difficulty urinating, Denies dysuria, Denies urinary frequency, Denies urinary hesitancy and Denies urinary urgency Musc Denies arthralgias, Denies limited range of motion, Denies muscle cramps and Denies muscle weakness Skin/Breast Denies rash and Denies skin ulcer Neuro Denies Abnormal speech present, Denies confusion, Denies vertigo, Denies dizziness, Denies syncope, Denies headache(s), Denies memory loss and Denies seizure-like activity Psych Denies anxiety, Denies confusion, Denies depression, Denies memory loss, Denies panic attacks and Denies paranoia Endo Denies excessive sweating, Denies fatigue, Denies flushing, Denies polydipsia and Denies polyuria Aller/Immun Denies wheezing Physical exam (Primary Care) Vital Signs: Last Vital Signs Pulse 60 04/19/23 16:10 BP 138/88 04/19/23 16:10 Pulse Ox 100 04/19/23 16:10 Oxygen Delivery Method Room Air 04/19/23 16:10 BMI result Body Mass Index 26.8 Tobacco/Smoking Status: Tobacco use Status Tobacco use date assessed 12/31/22 04/19/23 16:03 Patient Tobacco Use Status Former Tobacco user (one 04/19/23 16:03 year) Tobacco use type Smokeless Tobacco 04/19/23 16:03 e-Cigarette/Vaping Use Currently Using 04/19/23 16:03 PHQ-9: PHQ-9 Score PHQ-9: Total score 04/19/23 17:04 Depression Screening Interpretation: Positive Depression Screening Follow-up: Existing condition and In treatment Thrive Assessment: Date of Thrive Assessment Date Thrive assessed 04/19/23 04/19/23 16:16 Currently or been in a relationship where the following occur: no concerns reported Const General: cooperative, comfortable, no acute distress, alert and awake; No confusion Orientation/consciousness: oriented to person, oriented to place, patient basilio ented x3 and No confusion HENMT Head: Yes normocephalic Ears: external ears normal and TM's normal bilaterally Face and sinus: No sinus tenderness Mouth: Normal oral and palatal mucosa present and tongue normal Teeth and gingiva: dentition normal and gingiva normal Throat: Yes posterior oropharynx normal, Yes tonsils normal and Yes uvula midline Eyes Conjunctivae: conjunctivae normal Sclerae: sclerae normal Pupils: Equal, round and reactive pupils present EOM: EOMs intact bilaterally Direct Ophthalmoscopy: No no photophobia Neck Neck: Yes no lymphadenopathy, No tender and Yes no JVD Thyroid: Thyroid normal Carotids: no bruits Chest Chest palpation & inspection: no tenderness Resp Effort & Inspection: normal respiratory effort, no audible wheezes, not labored and no stridor Auscultation: no crackles, no rales, no rhonchi and no wheezes Cardio Jugular venous distension: no JVD Rate: regular rate, not bradycardic and not tachycardic Rhythm: regular rhythm Bruits: no carotid bruits Peripheral pulses: Peripheral pulses 2+ throughout GI Inspection: Yes normal to inspection, No abdominal wall ecchymosis and No visible herniation Palpation (GI): Soft to palpation, nontender, no guarding, not rigid and No hepatosplenomegaly present Auscultation: normoactive bowel sounds General: Yes no CVA tenderness Back/Spine/Pelvis Back: no CVA tenderness and No back tenderness Cervical Spine: cervical ROM normal Thoracic/Lumbar Spine: thoracic and lumbar spine normal to inspection, straight leg raise negative bilaterally, No thoraco-lumbar ROM limited and No lumbar spinal tenderness Skin Lesions: no lesions Rashes: no rashes Wounds: no wounds Neuro General: oriented to person, oriented to place, patient oriented x3, CN's II-XI intact bilaterally and No confusion Cranial nerves: Yes Equal, round and reactive pupils present and Yes Normal accommodation reflex present Cognition (Neuro): normal cognition Speech: No Abnormal speech present Gait exam (Neuro): Normal gait present Motor exam (neuro): 5/5 motor strength present throughout Extrem Right upper extremity: full ROM; no cyanosis Left upper extremity: full ROM; no cyanosis Right lower extremity: no edema Left lower extremity: no edema Psych Appearance: grossly normal Mental Status: mental status grossly normal Affect: normal affect Attitude: cooperative Thought process: Normal thought process present Assessment and Plan Assessment & Plan (1) Annual physical exam: Code(s): Z00.00 - Encounter for general adult medical examination without abnormal findings (2) ADD (attention deficit disorder): Code(s): F98.8 - Other specified behavioral and emotional disorders with onset usually occurring in childhood and adolescence Qualifiers: Hyperactivity presence: absent Qualified Code(s): F98.8 - Other specified behavioral and emotional disorders with onset usually occurring in childhood and adolescence Plan: As per HPI does now have a psychiatrist. He would like to PCP to prescribe him Adderall as he has been exhibiting signs and symptoms of ADHD. Also has low energy which may be related to his major depressive disorder. (3) Insomnia: Code(s): G47.00 - Insomnia, unspecified Qualifiers: Insomnia type: primary Qualified Code(s): F51.01 - Primary insomnia Plan: He does report having trouble sleeping and would like a new medication to help him sleep. At this point he has tried [id number] Benadryl, hydroxyzine and melatonin all without any effect. (4) Light headed: Code(s): R42 - Dizziness and giddiness Plan: Reports he has been somewhat lightheaded and dizzy in intermittent episodes over the last 2 months. Suspect this is related to being on and off psychiatric medication.. Will send for nonfasting labs (5) Major depressive disorder: Code(s): F32.9 - Major depressive disorder, single episode, unspecified Qualifiers: Major depression recurrence: recurrent Active/Remission status: currently active Major depression episode severity: unspecified Qualified Code(s): F33.9 - Major depressive disorder, recurrent, unspecified Plan: PHQ-9 score positive for depression which has been existing condition for him. He is now speaking with a psychiatrist. Tried many different mental health medications all without effectiveness or had side effects. (6) Anxiety: Code(s): F41.9 - Anxiety disorder, unspecified Plan: Patient's CITLALY-7 score positive for anxiety which has been existing condition for him. Again seeing a psychiatrist at this time. He does report hydroxyzine is helpful for as needed anxiety. Orders: Orders Vitamin D 25-OH Total 04/19/23 F51.01 - Primary insomnia Complete Blood Count no Diff 04/19/23 R42 - Dizziness and giddiness Basic Metabolic Panel 04/19/23 R42 - Dizziness and giddiness TSH reflex Free T4 04/19/23 R42 - Dizziness and giddiness Medications: New dextroamphetamine-amphetamine 5 mg ER (Adderall XR) Partial Fill upon patient request. 5 mg PO DAILY 28 days 28 caps 0RF F98.8 - Other specified behavioral and emotional disorders with onset usually occurring in childhood and adolescence quetiapine (Seroquel) 25 mg PO BEDTIME 14 days 14 tabs 0RF F51.01 - Primary insomnia Coding Level of Care Code Est Pt Prev Care 18-39y([id number]) Diagnoses Annual physical exam Z00.00 Attention deficit disorder (ADD) without hyperactivity F98.8 Hyperactivity presence: absent Primary insomnia F51.01 Insomnia type: primary Light headed R42 Episode of recurrent major depressive disorder, unspecified depression episode severity F33.9 Major depression recurrence: recurrent Active/Remission status: currently active Major depression episode severity: unspecified Anxiety F41.9 Additional Codes CITLALY-7 Assessment Billing - CITLALY-7 Assessment Tool: CITLALY-7 Assessment 90589 ([id number])
[2023-04-19 16:10] VITALS: BP 138/88; PULSE 60; O2SAT 100; BMI 26.8
== END 2023-04-19 17:05 | disposition home or self-care (01) ==
PROVIDERS: PCP Physician Assistant; Visit Provider Physician Assistant
DX: Z00.00 Encounter for general adult medical examination without abnormal findings (principal); F33.9 Major depressive disorder, recurrent, unspecified; F98.8 Other specified behavioral and emotional disorders with onset usually occurring in childhood and adolescence; F51.01 Primary insomnia; R42 Dizziness and giddiness; F41.9 Anxiety disorder, unspecified
CPT/HCPCS: 96127; 99395

== ENCOUNTER 2023-04-20 12:29 | Outpatient (REF) | payer OTHER, SELFPAY ==
[2023-04-20 13:58] LABS: Hematocrit 47.8 % (42.0-52.0); Hemoglobin 16.1 g/dl (14.0-18.0); Mean Corpuscular HGB Conc 33.7 g/dl (31.0-36.0); Mean Corpuscular Volume 86.1 fL (80.0-98.0); Mean Platelet Volume 9.6 fL (9.4-12.4); Platelet Count 276 X10*3/uL (160-400); Red Blood Count 5.55 X10*6/uL (4.60-5.80); White Blood Count 4.4 X10*3/uL (4.8-10.8)
[2023-04-20 15:00] LABS: Anion Gap 11 (12-20); Blood Urea Nitrogen 12 mg/dL (9-16); Calcium 9.6 mg/dL (8.4-10.2); Carbon Dioxide 29 mmol/L (22-29); Chloride 104 mmol/L (96-108); Estimated Glomerular Filt Rate > 60; Glucose Random 89 mg/dL (60-115); Potassium 4.9 mmol/L (3.3-5.1); Sodium 139 mmol/L (135-145); TSH reflex Free T4 0.84 uIU/mL (0.32-4.0); Vitamin D 25-OH Total 16.3 ng/mL (>30)
== END 2023-04-20 12:30 | disposition home or self-care (01) ==
LOC: HO.LAB 12:29
PROVIDERS: PCP Physician Assistant; Visit Provider Physician Assistant
DX: F51.01 Primary insomnia (principal); R42 Dizziness and giddiness
CPT/HCPCS: 36415; 80048; 82306; 84443; 85027

== ENCOUNTER 2023-04-20 13:19 | Outpatient (AMB) | payer OTHER, SELFPAY ==
[2023-04-20 13:30] VITALS: BP 122/68; PULSE 68; TEMP 36.6; O2SAT 98; BMI 27.0
--- NOTE | 2023-04-20 13:30 | MHC.OFFWIV ---
Intake Vital Signs 04/20/23 13:30 Height 5 ft 10 in Weight 188 lb BMI 27.0 BP 122/68 Blood Pressure Location Lt brachial Position Sitting Pulse 68 Pulse Source Pulse Oximeter Temp 97.8 F Temp Source Oral Pulse Oximetry (%) 98 Oxygen Delivery Method Room Air Intake Visit Reasons: EP Insomnia Evaluation Intake Note: pt is here for c.o chronic insomnia, trouble sleeping. needs work note due to not going to work today. Patient Tobacco Use Status: Former Tobacco user (one year) Quit Date: one year ago Allergies atomoxetine [From Strattera] Adverse Reaction (Intermediate, Verified 04/20/23 13:31) Insomnia bupropion [From Wellbutrin] Adverse Reaction (Intermediate, Verified 04/20/23 13:31) Agitated escitalopram [From Lexapro] Adverse Reaction (Intermediate, Verified 04/20/23 13:31) Insomnia sertraline [From Zoloft] Adverse Reaction (Intermediate, Verified 04/20/23 13:31) Nausea trazodone Adverse Reaction (Intermediate, Verified 04/20/23 13:31) not effective stone fruit Allergy (Uncoded 12/31/22 15:44) Swelling Do you need a note to return to daycare/school/sports/work: No HPI HPI Comments History of Present Illness Details This is a 28-year-old male with a past medical history of ADHD and insomnia that he has had for several years presenting for evaluation of his insomnia. Patient saw his primary care physician yesterday and was started on Seroquel 25 mg at bedtime however he has not yet picked up this medication from the pharmacy. 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 Patient states he has a psychiatrist was does not yet have a therapist of record. Patient has no physical complaints at this time. [facility] Medical History Major depressive disorder Anxiety Dyspnea Surgical History No pertinent past surgical history Family History Father No problems noted. Mother Multiple sclerosis Other Substance use disorder Social History Housing: Apartment Alcohol intake: current Alcohol intake frequency: holidays/special occasions only Alcohol type: beer, wine and hard liquor Patient Tobacco Use Status: Former Tobacco user (one year) Quit Date: one year ago Tobacco use type: Smokeless Tobacco e-Cigarette/Vaping Use: Currently Using Second Hand Smoke Exposure: No Substance Use Type: Marijuana service: No Current occupational status: unemployed Cognitive needs: No Hearing needs: No Vision needs: Yes (glasses) Review of Systems Const All systems reviewed & are unremarkable except as noted in HPI and below Reports as per HPI Eyes Reports no additional complaints ENT Reports no additional complaints Resp Reports no additional complaints GI Reports no additional complaints Neuro Denies confusion Psych Reports abnormal sleep pattern (insomnia), Reports anxiety, Denies confusion, Denies depression, Reports difficulty concentrating, Denies hopelessness, Denies homicidal ideation and Denies suicidal ideation Physical Exam Vital Signs: Last Vital Signs Temp 97.8 F 04/20/23 13:30 Pulse 68 04/20/23 13:30 BP 122/68 04/20/23 13:30 Pulse Ox 98 04/20/23 13:30 Oxygen Delivery Method Room Air 04/20/23 13:30 BMI result Body Mass Index 27.0 Vital signs reviewed. Const General: cooperative, healthy appearing, comfortable, no acute distress, well developed, alert and awake; No confusion or lethargic Nutritional Appearance: average body habitus Orientation/consciousness: patient oriented x3, No confusion and No lethargic Limitations: no limitations Eyes Alignment and Position: alignment normal EOM: EOMs intact bilaterally Resp Effort & Inspection: normal respiratory effort, no cough and not tachypneic Auscultation: clear to auscultation bilaterally and no wheezes Cardio Rate: regular rate Rhythm: regular rhythm Neuro General: patient oriented x3 and No confusion Cognition (Neuro): normal cognition Gait exam (Neuro): Normal gait present Psych Appearance: grossly normal Mental Status: mental status grossly normal Speech and movement: Normal speech and movement present and Clear speech present Affect: normal affect Attitude: cooperative Thought process: Normal thought process present Thought content: Normal thought content present Insight: Good insight present (Psych) Judgement: Good judgement present (Psych) Assessment & Plan Assessment & Plan (1) Insomnia: Comment: Patient has a prescription for Seroquel waiting at the pharmacy; 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 Code(s): G47.00 - Insomnia, unspecified Qualifiers: Insomnia type: primary Qualified Code(s): F51.01 - Primary insomnia Plan: Seroquel as previously prescribed; patient to seek a therapist through his Psychiatrist and PCP. Patient provided for a work note to excuse him from work this evening. Coding Level of Care Code Est Pt Level 3 (90652) Diagnoses Primary insomnia F51.01 Insomnia type: primary Time Spent (min) 20
== END 2023-04-20 14:14 | disposition home or self-care (01) ==
PROVIDERS: PCP Physician Assistant; Visit Provider Physician Assistant
DX: F51.01 Primary insomnia (principal)
CPT/HCPCS: 99213

== ENCOUNTER 2023-05-20 11:41 | Outpatient (AMB) | payer OTHER, SELFPAY ==
--- NOTE | 2023-05-20 11:37 | A.OFFPC_ITS ---
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 Required: No Information Interpreted: non-clinical & clinical Stereo Compiler: Not Required per policy Accompanied by: Self / Same As Patient Allergies atomoxetine [From Strattera] Adverse Reaction (Intermediate, Verified 05/20/23 11:57) Insomnia bupropion [From Wellbutrin] Adverse Reaction (Intermediate, Verified 05/20/23 11:57) Agitated escitalopram [From Lexapro] Adverse Reaction (Intermediate, Verified 05/20/23 11:57) Insomnia sertraline [From Zoloft] Adverse Reaction (Intermediate, Verified 05/20/23 11:57) Nausea trazodone Adverse Reaction (Intermediate, Verified 05/20/23 11:57) not effective stone fruit Allergy (Uncoded 05/20/23 11:39) Swelling Medication List - Last Reconciled 05/20/23 by Tony Garibay PA-C albuterol sulfate 90 mcg/actuation (Ventolin HFA) 2 puffs inhalation Q6H PRN azelastine-fluticasone 137-50 mcg/spray 1 spray intranasal BID cholecalciferol (vitamin D3) 25 mcg PO DAILY 90 days escitalopram oxalate 10 mg PO DAILY hydroxyzine HCl 25 mg PO BEDTIME 15 days lorazepam 0.5 mg PO BEDTIME PRN 7 days nicotine (polacrilex) 2 mg buccal Q2H PRN 15 days quetiapine (Seroquel) 25 mg PO BEDTIME 14 days Tobacco use date assessed: 05/20/23 Dental Screening Dental Screen Date: 05/20/23 Did you have a dental visit in the last 12 months?: Yes Did you have a dental problem in the last 6 months where you did not have access to dental care?: No Was dental information given to patient?: Patient has dentist HPI f/u Telehealth ( ADD) HPI Details Patient is a 28-year-old male being evaluated today via telephone. Patient has a past medical history significant for major depressive disorder, insomnia, anxiety. Concern--> reports getting sick often, most recent x-ray does show haziness likely related to his a chronic cigarette/vapor use. He does agree and will try a different nicotine source rather than inhalant. .. Major depressive disorder/ADD/ anxiety: Now has a psychiatrist whom he does like. Has been making med adjustments. Now back on Lexapro and does use hydroxyzine on an [id number] basis. Has tried Adderall for ADD disorder though felt to hyper focused and did not like the feeling. FORMERLY [facility] Medical History Major depressive disorder Anxiety Dyspnea Surgical History No pertinent past surgical history Family History Father No problems noted. Mother Multiple sclerosis Other Substance use disorder Social History Housing: Apartment Alcohol intake: current Alcohol intake frequency: holidays/special occasions only Alcohol type: beer, wine and hard liquor Patient Tobacco Use Status: Former Tobacco user (one year) Quit Date: one year ago Tobacco use type: Smokeless Tobacco e-Cigarette/Vaping Use: Currently Using Second Hand Smoke Exposure: No Substance Use Type: Marijuana service: No Current occupational status: unemployed Cognitive needs: No Hearing needs: No Vision needs: Yes (glasses) Questionnaire Thrive Questionnaire Date Thrive assessed: 04/19/23 CITLALY-7 AMB Questionnaire CITLALY-7 Date CITLALY - 7 assessed: 04/19/23 Source: Developed by Drs. Skip Tavarez, Liliam Barney, Tejas Nicholas and colleagues, with an educational kelvin from [employer]. Review of Systems Const Denies headache(s) Eyes Denies loss of vision ENT Denies vertigo, Denies dizziness, Denies headache(s) and Denies sore throat Card Denies chest pain, Denies leg edema and Denies lightheadedness Resp Reports cough, Denies hemoptysis and Denies wheezing GI Denies abdominal pain, Denies melena, Denies constipation, Denies diarrhea and Denies vomiting Denies dysuria, Denies urinary frequency and Denies urinary urgency Musc Denies arthralgias, Denies joint swelling, Denies numbness and Denies tingling Neuro Denies behavioral changes, Denies vertigo, Denies dizziness, Denies headache(s), Denies loss of vision, Denies memory loss, Denies numbness and Denies tingling Psych Denies anxiety, Denies behavioral changes, Denies depression, Denies memory loss and Denies panic attacks Beau/Lymph Denies easy bleeding and Denies easy bruising Aller/Immun Denies wheezing Physical exam (Primary Care) Tobacco/Smoking Status: Tobacco use Status Tobacco use date assessed 05/20/23 05/20/23 11:40 Patient Tobacco Use Status Former Tobacco user (one 05/20/23 11:40 year) Tobacco use type Smokeless Tobacco 05/20/23 11:40 e-Cigarette/Vaping Use Currently Using 05/20/23 11:40 Thrive Assessment: Date of Thrive Assessment Date Thrive assessed 04/19/23 05/20/23 11:40 Telehealth Telehealth Location of provider rendering services: practice address Location of patient: address on file Patient Identification confirmed using: Name, : Yes Telehealth method: voice only Patient verbally consented to treatment: Yes Patient verbally consented to billing insurance company: Yes Patient informed of any privacy concerns related to visit: Yes Minutes spent on Phone/Video with Pt.: 11 Assessment and Plan Assessment & Plan (1) Major depressive disorder: Code(s): F32.9 - Major depressive disorder, single episode, unspecified Qualifiers: Active/Remission status: currently active Major depression episode severity: unspecified Major depression recurrence: recurrent Qualified Code(s): F33.9 - Major depressive disorder, recurrent, unspecified Plan: Followed by psychiatrist. Has been restarted on Lexapro to see if this will help his mood and anxiety. (2) Left hand pain: Code(s): M79.642 - Pain in left hand Plan: Reports chronic left hand pain. Reports he is left-hand dominant. Advised NSAID and/or Tylenol. Discussed referral to occupational therapy and or hand surgeon for possible cortisone injection though if patient is considering (3) Nicotine dependence: Code(s): F17.200 - Nicotine dependence, unspecified, uncomplicated Qualifiers: Nicotine product type: other Substance use status: unspecified nicotine-induced disorder Qualified Code(s): F17.299 - Nicotine dependence, other tobacco product, with unspecified nicotine-induced disorders Plan: Uses smokeless tobacco vaporizer and does understand this is a detriment to his lungs. X-ray does show hazy appearance which is likely the reason he has not feeling well. He does understand he needs to quit using vaporized cigarettes. (4) ADD (attention deficit disorder): Code(s): F98.8 - Other specified behavioral and emotional disorders with onset usually occurring in childhood and adolescence Qualifiers: Hyperactivity presence: absent Qualified Code(s): F98.8 - Other specified behavioral and emotional disorders with onset usually occurring in childhood and adolescence Plan: Tried Adderall though felt to hyper focused and did not like the feeling. Medications: Discontinued nicotine (polacrilex) Discontinued Reason: Doctor's Order 2 mg buccal Q2H 15 days PRN 110 ea 0RF nicotine cravings F17.200 - Nicotine dependence, unspecified, uncomplicated, F17.299 - Nicotine dependence, other tobacco product, with unspecified nicotine- induced disorders Coding Level of Care Code Tele Est Pt Level 3 (00849) Diagnoses Episode of recurrent major depressive disorder, unspecified depression episode severity F33.9 Active/Remission status: currently active Major depression episode severity: unspecified Major depression recurrence: recurrent Left hand pain M79.642 Other tobacco product nicotine dependence with nicotine-induced disorder F17.299 Nicotine product type: other Substance use status: unspecified nicotine-induced disorder Attention deficit disorder (ADD) without hyperactivity F98.8 Hyperactivity presence: absent
== END 2023-05-20 12:39 | disposition home or self-care (01) ==
LOC: HO.HMGH 11:41
PROVIDERS: PCP Physician Assistant; Visit Provider Physician Assistant
DX: F33.9 Major depressive disorder, recurrent, unspecified (principal); M79.642 Pain in left hand; F17.299 Nicotine dependence, other tobacco product, with unspecified nicotine-induced disorders; F98.8 Other specified behavioral and emotional disorders with onset usually occurring in childhood and adolescence
CPT/HCPCS: 99213

== ENCOUNTER → 2023-06-18 14:22 | Outpatient (REF) | payer OTHER, SELFPAY ==
--- NOTE | ~2023-06-18 | XR_ITS ---
EXAMINATION: XR CHEST CLINICAL INFORMATION: Acute upper respiratory infection. COMPARISON: 04/21/2022. TECHNIQUE: 2 views of the chest were obtained. FINDINGS: The heart size is normal. There is no gross pneumothorax. No pleural effusion. No focal consolidation to suggest pneumonia. Minimal degenerative changes in the thoracic spine. XR/XR chest 2V IMPRESSION: No evidence of pneumonia.
--- NOTE | 2023-06-18 14:31 | ECG_ITS ---
Test Reason : dizziness Blood Pressure : / mmHG Vent. Rate : 057 BPM Atrial Rate : 057 BPM P-R Int : 154 ms QRS Dur : 096 ms QT Int : 392 ms P-R-T Axes : 036 082 054 degrees QTc Int : 381 ms Sinus bradycardia with sinus arrhythmia Otherwise normal ECG When compared with ECG of 21-APR-2022 17:13, No significant change was found Referred By: Tony Garibay Electronically Signed By:ARGENIS FUNEZ
== END ==
LOC: HO.CARD 14:22
PROVIDERS: PCP Physician Assistant; Visit Provider Physician Assistant
DX: R42 Dizziness and giddiness (principal); J06.9 Acute upper respiratory infection, unspecified
CPT/HCPCS: 71046; 93005

== ENCOUNTER → 2023-06-18 14:31 | Outpatient (BNV) | payer OTHER, SELFPAY | PROVIDERS: PCP Physician Assistant; Visit Provider Internal Medicine | DX: R42 Dizziness and giddiness (principal) | CPT/HCPCS: 93010 ==

== ENCOUNTER 2023-09-14 13:53 | Outpatient (AMB) | payer SELFPAY ==
--- NOTE | 2023-09-14 14:07 | AM.OFFWIN_ITS ---
Intake Vital Signs 09/14/23 14:08 Height 5 ft 10 in Weight 191 lb BMI 27.4 BP 120/78 Blood Pressure Location Rt brachial Position Sitting Pulse 54 Pulse Source Pulse Oximeter Temp 98.2 F Temp Source Oral Pulse Oximetry (%) 98 Oxygen Delivery Method Room Air Intake Visit Reasons: EP ?Sinus infection Intake Note: pt here c/o ? sinus infection. Headache, sinus pressure. No improvement with OTC meds Symptom onset: 2 weeks ago Patient Tobacco Use Status: Former Tobacco user Allergies atomoxetine [From Strattera] Adverse Reaction (Intermediate, Verified 09/14/23 14:13) Insomnia bupropion [From Wellbutrin] Adverse Reaction (Intermediate, Verified 09/14/23 14:13) Agitated escitalopram [From Lexapro] Adverse Reaction (Intermediate, Verified 09/14/23 14:13) Insomnia sertraline [From Zoloft] Adverse Reaction (Intermediate, Verified 09/14/23 14:13) Nausea trazodone Adverse Reaction (Intermediate, Verified 09/14/23 14:13) not effective stone fruit Allergy (Uncoded 09/14/23 14:13) Swelling Do you need a note to return to daycare/school/sports/work: Yes HPI HPI Comments History of Present Illness Details He presents for sinus infection Ongoing x 2 weeks Tried flonase without relief. Also tried OTC medicine without relief 09/05 sinus frontal pain + chills without fever He states no ear pain or ST He denies SOB but said minimal cough PFSH Medical History Major depressive disorder Anxiety Dyspnea Surgical History No pertinent past surgical history Family History Father No problems noted. Mother Multiple sclerosis Other Substance use disorder Social History Housing: Apartment Alcohol intake: current Alcohol intake frequency: holidays/special occasions only Alcohol type: beer, wine and hard liquor Patient Tobacco Use Status: Former Tobacco user Tobacco use type: Smokeless Tobacco e-Cigarette/Vaping Use: Currently Using Second Hand Smoke Exposure: No Substance Use Type: Marijuana service: No Current occupational status: unemployed Cognitive needs: No Hearing needs: No Vision needs: Yes (glasses) Review of Systems Const Denies fever(s) Eyes Denies blurry vision ENT Denies dizziness, Denies otalgia, Reports nasal congestion, Reports nasal discharge, Reports sinus pressure, Denies sore throat and Denies throat swelling Card Denies chest pain and Denies dyspnea Resp Denies chest congestion, Reports cough and Denies dyspnea Neuro Denies dizziness Aller/Immun Denies throat swelling Physical Exam Vital Signs: Last Vital Signs Temp 98.2 F 09/14/23 14:08 Pulse 54 09/14/23 14:08 BP 120/78 09/14/23 14:08 Pulse Ox 98 09/14/23 14:08 Oxygen Delivery Method Room Air 09/14/23 14:08 BMI result Body Mass Index 27.4 General: Non-toxic, NAD. Speaking full sentences. Skin: Warm dry throughout Eye: EOMI HENT: Airway patent. Uvula midline. No pharyngeal erythema or edema. No RECYCLABLE MATERIALS COLLECTOR. Bilateral canals clear. TM non-erythematous, non-bulging. No TM perforation or hemotympanum noted. + maxocillary sinus tenderness bilaterally. No frontal sinus tenderness Respiratory: CTA bilaterally. No wheezes, rales or rhonchi Cardiac: RRR. No murmur MSK: Full ROM extremities. Neurology: A/O. No aphasia or facial droop. Gait without abnormality Psych: Good mood and affect Assessment & Plan Assessment & Plan (1) Sinusitis: Code(s): J32.9 - Chronic sinusitis, unspecified Qualifiers: Chronicity: acute Recurrence: non-recurrent Sinusitis location: frontal Qualified Code(s): J01.10 - Acute frontal sinusitis, unspecified Plan: Patient seen and evaluated. Augmentin sent to pharmacy Patient gave verbal understanding and had no additional questions or concerns at time of discharge All questions answered Medications: New amoxicillin-pot clavulanate 875-125 mg 1 tab PO BID 14 tabs 0RF Coding Level of Care Code Est Pt Level 3 (41080) Diagnoses Acute non-recurrent frontal sinusitis J01.10 Chronicity: acute Recurrence: non-recurrent Sinusitis location: frontal
[2023-09-14 14:08] VITALS: BP 120/78; PULSE 54; TEMP 36.8; O2SAT 98; BMI 27.4
== END 2023-09-14 14:32 | disposition home or self-care (01) ==
PROVIDERS: PCP Physician Assistant; Visit Provider Physician Assistant
DX: J01.10 Acute frontal sinusitis, unspecified (principal)
CPT/HCPCS: 99213

== ENCOUNTER 2023-09-28 13:00 | Outpatient (AMB) | payer OTHER, SELFPAY ==
[2023-09-28 13:03] VITALS: BP 118/70; PULSE 76; TEMP 36.8; O2SAT 97; BMI 27.4
--- NOTE | 2023-09-28 13:03 | AM.OFFWIN_ITS ---
Intake Vital Signs 09/28/23 13:03 Height 5 ft 10 in Weight 191 lb BMI 27.4 BP 118/70 Blood Pressure Location Rt brachial Position Sitting Pulse 76 Pulse Source Pulse Oximeter Temp 98.3 F Temp Source Oral Pulse Oximetry (%) 97 Intake Visit Reasons: EP ?Sinus/headache Intake Note: pt is here for sinus and headache Patient Tobacco Use Status: Former Tobacco user Allergies atomoxetine [From Strattera] Adverse Reaction (Intermediate, Verified 09/28/23 13:05) Insomnia bupropion [From Wellbutrin] Adverse Reaction (Intermediate, Verified 09/28/23 13:05) Agitated escitalopram [From Lexapro] Adverse Reaction (Intermediate, Verified 09/28/23 13:05) Insomnia sertraline [From Zoloft] Adverse Reaction (Intermediate, Verified 09/28/23 13:05) Nausea trazodone Adverse Reaction (Intermediate, Verified 09/28/23 13:05) not effective stone fruit Allergy (Uncoded 09/14/23 14:13) Swelling Medication List - Last Reconciled 09/28/23 by Joann Randolph NP albuterol sulfate 90 mcg/actuation (Ventolin HFA) 2 puffs inhalation Q6H PRN dextroamphetamine-amphetamine 5 mg 1 tab PO DAILY PRN hydroxyzine HCl 25 mg PO BEDTIME 15 days lorazepam 0.5 mg PO BEDTIME PRN 7 days Do you need a note to return to daycare/school/sports/work: Yes HPI EP ?Sinus/headache HPI Details This note is constructed using voice recognition software. While every effort has been made to ensure accuracy, lead sustainability specialist errors may have been included. 28-year-old male patient presents with c omplaints of sinus congestion. He notes that this has been going on for the past 1 month, it got better after being treated with amoxicillin, however it came back in the past week with pressure down into his upper teeth bilaterally. He notes that he also suffers from allergic rhinitis, and is treating himself with as-needed Flonase nasal spray. Has tried ibuprofen at home, as well as decongestants to help with the pain. He is using Neti pot regularly for sinus rinse. He is getting out thick yellow discharge with his Neti pot. He denies fever, chills, cough, shortness of breath, body aches. He is happy as he recently regained access to health insurance after some time without it, however notes that at times going to an office does make him nervous for his own health that had been untreated for some period of time. FORMERLY [facility] Medical History Major depressive disorder Anxiety Dyspnea Surgical History No pertinent past surgical history Family History Father No problems noted. Mother Multiple sclerosis Other Substance use disorder Social History Housing: Apartment Alcohol intake: current Alcohol intake frequency: holidays/special occasions only Alcohol type: beer, wine and hard liquor Patient Tobacco Use Status: Former Tobacco user Tobacco use type: Smokeless Tobacco e-Cigarette/Vaping Use: Currently Using Second Hand Smoke Exposure: No Substance Use Type: Marijuana service: No Current occupational status: unemployed Cognitive needs: No Hearing needs: No Vision needs: Yes (glasses) Review of Systems Const All systems reviewed & are unremarkable except as noted in HPI and below Physical Exam Vital Signs: Last Vital Signs Temp 98.3 F 09/28/23 13:03 Pulse 76 09/28/23 13:03 BP 118/70 09/28/23 13:03 Pulse Ox 97 09/28/23 13:03 BMI result Body Mass Index 27.4 Const General: cooperative, healthy appearing, comfortable and no acute distress Orientation/consciousness: patient oriented x3 Limitations: no limitations HEENT Head: Yes normal to inspection Ears: hearing grossly normal bilaterally, external ears normal and TM's normal bilaterally General nose exam: Normal external nose present, Normal nares present and No nasal discharge present Face and sinus: Yes normal facial exam and Yes sinus tenderness (frontal bilateral) Mouth: Normal oral and palatal mucosa present and moist mucous membranes Teeth and gingiva: dentition normal Throat: Yes posterior oropharynx normal, Yes tonsils normal, Yes uvula midline and Yes cobblestoning Eyes General: appearance normal, both eyes and all related structures Neck Neck: Yes normal visual inspection Resp Effort & Inspection: normal respiratory effort, able to speak in complete sentences, Actively coughing, no respiratory distress, not tachypneic, no tripod positioning and no use of accessory muscles Auscultation: clear to auscultation bilaterally Cardio Jugular venous distension: no JVD Rate: regular rate Rhythm: regular rhythm Heart sounds: S1 normal heart sound present, S2 normal heart sound present, no click, no gallops, no murmurs and no rubs Skin General skin exam: no rashes or lesions noted, elasticity normal and turgor normal Neuro General: patient oriented x3 Extrem General: Yes normal to inspection and Yes no clubbing, cyanosis or edema Assessment & Plan Assessment & Plan (1) Sinusitis, bacterial: Code(s): J32.9 - Chronic sinusitis, unspecified; B96.89 - Other specified bacterial agents as the cause of diseases classified elsewhere Plan: Given improvement and then further decline, will treat with alternate antimicrobial therapy. Advised patient to follow with PCP with ongoing or worsening symptoms as this may require additional workup. He notes that he may be interested in referral to ENT in the future should the symptoms continue. I advised him to also focus on treatment and prevention of his allergies as these may contribute to overall sinus health. Plan See above for full details and plan. Coding Level of Care Code Est Pt Level 3 (39858) Diagnoses Sinusitis, bacterial J32.9; B96.89
== END 2023-09-28 14:09 | disposition home or self-care (01) ==
PROVIDERS: PCP Physician Assistant; Visit Provider Registered Nurse
DX: J32.9 Chronic sinusitis, unspecified (principal); B96.89 Other specified bacterial agents as the cause of diseases classified elsewhere
CPT/HCPCS: 99213

== ENCOUNTER 2023-10-07 16:48 | Outpatient (AMB) | payer OTHER, SELFPAY ==
--- NOTE | 2023-10-07 17:05 | A.OFFPC_ITS ---
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 Accompanied by: Self / Same As Patient Allergies atomoxetine [From Strattera] Adverse Reaction (Intermediate, Verified 10/07/23 17:17) Insomnia bupropion [From Wellbutrin] Adverse Reaction (Intermediate, Verified 10/07/23 17:17) Agitated escitalopram [From Lexapro] Adverse Reaction (Intermediate, Verified 10/07/23 17:17) Insomnia sertraline [From Zoloft] Adverse Reaction (Intermediate, Verified 10/07/23 17:17) Nausea trazodone Adverse Reaction (Intermediate, Verified 10/07/23 17:17) not effective stone fruit Allergy (Uncoded 10/07/23 17:17) Swelling Medication List - Last Reconciled 10/07/23 by Aria Burk MD albuterol sulfate 90 mcg/actuation (Ventolin HFA) 2 puffs inhalation Q6H PRN amoxicillin 500 mg PO Q12H 5 days dextroamphetamine-amphetamine 5 mg 1 tab PO DAILY PRN hydroxyzine HCl 25 mg PO BEDTIME 15 days lorazepam 0.5 mg PO BEDTIME PRN 7 days Tobacco use date assessed: 05/20/23 Dental Screening Dental Screen Date: 05/20/23 HPI HPI Comments History of Present Illness Details This is a 28-year-old male with ADD and anxiety that complains of sinus pain, mandibular pain, neck pain and bilateral shoulder pain. Denies any fever or rash. Do not hike in the [place]. No previous trauma. This started about 2 weeks ago and he went to urgent care and received amoxicillin for sinus infection. He denies any nasal congestion and at the moment has no sinus tenderness. I will order x-rays. ADD stable with amphetamines and anxiety stable with hydroxyzine as needed. For pain I will give meloxicam as needed. He tried ibuprofen with no significant relief. [facility] Medical History (Updated 10/08/23 @ 10:16 by Aria Burk MD) Major depressive disorder Anxiety Dyspnea Surgical History No pertinent past surgical history Family History Father No problems noted. Mother Multiple sclerosis Other Substance use disorder Social History Housing: Apartment Alcohol intake: current Alcohol intake frequency: holidays/special occasions only Alcohol type: beer, wine and hard liquor Patient Tobacco Use Status: Former Tobacco user Tobacco use type: Smokeless Tobacco e-Cigarette/Vaping Use: Currently Using Second Hand Smoke Exposure: No Substance Use Type: Marijuana service: No Current occupational status: unemployed Cognitive needs: No Hearing needs: No Vision needs: Yes (glasses) Questionnaire Thrive Questionnaire Date Thrive assessed: 04/19/23 CITLALY-7 AMB Questionnaire CITLALY-7 Date CITLALY - 7 assessed: 04/19/23 Source: Developed by Drs. Skip Tavarez, Liliam Barney, Tejsa Nicholas and colleagues, with an educational kelvin from [employer]. Review of Systems Const All systems reviewed & are unremarkable except as noted in HPI and below ENT Reports neck pain and Reports sinus pain Card Denies chest pain at rest, Denies chest pain with activity, Denies edema, Denies irregular heart rhythm, Denies claudication, Denies dyspnea, Denies dyspnea on exertion, Denies orthopnea, Denies paroxysmal nocturnal dyspnea and Denies slow heart rate Resp Denies cough, Denies dyspnea and Denies dyspnea on exertion Musc Reports arthralgias and Reports neck pain Physical exam (Primary Care) Vital Signs: Last Vital Signs Pulse 74 10/07/23 17:06 BP 120/70 10/07/23 17:06 Pulse Ox 97 10/07/23 17:06 Oxygen Delivery Method Room Air 10/07/23 17:06 BMI result Body Mass Index 28.0 Tobacco/Smoking Status: Tobacco use Status Tobacco use date assessed 05/20/23 10/07/23 17:07 Patient Tobacco Use Status Former Tobacco user 10/07/23 17:07 Tobacco use type Smokeless Tobacco 10/07/23 17:07 e-Cigarette/Vaping Use Currently Using 10/07/23 17:07 Thrive Assessment: Date of Thrive Assessment Date Thrive assessed 04/19/23 10/07/23 17:07 Resp Effort & Inspection: normal respiratory effort Auscultation: clear to auscultation bilaterally Cardio Jugular venous distension: no JVD Rate: regular rate Rhythm: regular rhythm Heart sounds: S1 normal heart sound present and S2 normal heart sound present Extrem General: Yes full ROM Assessment and Plan Assessment & Plan (1) Sinus pain: Code(s): J34.89 - Other specified disorders of nose and nasal sinuses Plan: X-ray ordered. (2) Right shoulder pain: Code(s): M25.511 - Pain in right shoulder Qualifiers: Chronicity: acute Qualified Code(s): M25.511 - Pain in right shoulder Plan: X-ray ordered. Start meloxicam as needed. (3) Left shoulder pain: Code(s): M25.512 - Pain in left shoulder Qualifiers: Chronicity: acute Qualified Code(s): M25.512 - Pain in left shoulder Plan: X-ray ordered. Start meloxicam as needed. (4) Mandibular pain: Code(s): R68.84 - Jaw pain Plan: X-ray ordered. (5) Neck pain: Code(s): M54.2 - Cervicalgia Plan: X-ray ordered. Start meloxicam as needed. (6) Anxiety, generalized: Code(s): F41.1 - Generalized anxiety disorder Plan: Continue hydroxyzine as needed. (7) ADD (attention deficit disorder): Code(s): F98.8 - Other specified behavioral and emotional disorders with onset usually occurring in childhood and adolescence Qualifiers: Hyperactivity presence: absent Qualified Code(s): F98.8 - Other specified behavioral and emotional disorders with onset usually occurring in childhood and adolescence Plan: Continue amphetamines as needed. Orders: Orders XR cervical spine 2V 10/07/23 M54.2 - Cervicalgia XR sinus bennett view 10/07/23 J34.89 - Other specified disorders of nose and nasal sinuses XR shoulder LT min 2V 10/07/23 M25.512 - Pain in left shoulder XR shoulder RT min 2V 10/07/23 M25.511 - Pain in right shoulder XR mandible <4V 10/07/23 R68.84 - Jaw pain Medications: New meloxicam 15 mg PO DAILY 7 days PRN 7 tabs 0RF pain Refilled hydroxyzine HCl 25 mg PO BEDTIME 15 days 15 tabs 1RF F51.01 - Primary insomnia Coding Level of Care Code Est Pt Level 4 (41370) Complex EM visit Add On G2211 Diagnoses Sinus pain J34.89 Acute pain of right shoulder M25.511 Chronicity: acute Acute pain of left shoulder M25.512 Chronicity: acute Mandibular pain R68.84 Neck pain M54.2 Anxiety, generalized F41.1 Attention deficit disorder (ADD) without hyperactivity F98.8 Hyperactivity presence: absent Time Spent (min) 22
[2023-10-07 17:06] VITALS: BP 120/70; PULSE 74; O2SAT 97; BMI 28.0
== END 2023-10-07 17:19 | disposition home or self-care (01) ==
PROVIDERS: PCP Physician Assistant; Visit Provider Internal Medicine
DX: J34.89 Other specified disorders of nose and nasal sinuses (principal); M25.511 Pain in right shoulder; M25.512 Pain in left shoulder; R68.84 Jaw pain; M54.2 Cervicalgia; F41.1 Generalized anxiety disorder; F98.8 Other specified behavioral and emotional disorders with onset usually occurring in childhood and adolescence
CPT/HCPCS: 99214; G2211

== ENCOUNTER 2023-10-08 13:15 | Outpatient (REF) | payer OTHER, SELFPAY ==
--- NOTE | ~2023-10-08 | XR_ITS ---
EXAMINATION: XR SHOULDER, RIGHT CLINICAL INFORMATION: Pain. COMPARISON: None available. TECHNIQUE: AP external rotation, Grashey, scapular Y, and axillary views of the right shoulder. FINDINGS: The bones and soft tissues are normal. No fracture. Glenohumeral and acromioclavicular alignment is anatomic with normal joint space. No abnormal soft tissue calcifications. XR/XR shoulder RT min 2V IMPRESSION: Normal right shoulder. EXAMINATION: XR SHOULDER, LEFT CLINICAL INFORMATION: Pain. COMPARISON: None available. TECHNIQUE: AP external rotation, Grashey, scapular Y, and axillary views of the left shoulder. FINDINGS: The bones and soft tissues are normal. No fracture. A small sclerotic, well marginated bone island is incidentally noted within the humeral head. Glenohumeral and acromioclavicular alignment is anatomic with normal joint space. No abnormal soft tissue calcifications. IMPRESSION: Normal left shoulder.
--- NOTE | ~2023-10-08 | XR_ITS ---
EXAMINATION: XR SINUSES CLINICAL INFORMATION: Other specified disorders of nose and nasal sinuses. COMPARISON: None available. TECHNIQUE: Colon wall, Winn, lateral and submentovertex views of the sinuses were obtained. FINDINGS: Paranasal sinuses appear clear without air-fluid levels. No fractures are identified. There is a slight leftward nasal septal deviation. No radiodense foreign bodies. XR/XR sinus min 3V IMPRESSION: Unremarkable examination.
--- NOTE | ~2023-10-08 | XR_ITS ---
EXAMINATION: CERVICAL SPINE 3 VIEWS CLINICAL INFORMATION: Cervicalgia. COMPARISON: None. TECHNIQUE: Frontal, lateral and odontoid views are obtained. FINDINGS: Vertebral body heights and alignment are normal. The disc spaces are well-maintained. No acute fracture or spondylolisthesis is seen. The dens and C7-T1 interface are normal. The posterior elements are intact. There is no prevertebral soft tissue swelling. XR/XR cervical spine 2V IMPRESSION: Negative examination.
--- NOTE | ~2023-10-08 | XR_ITS ---
EXAMINATION: XR SHOULDER, RIGHT CLINICAL INFORMATION: Pain. COMPARISON: None available. TECHNIQUE: AP external rotation, Grashey, scapular Y, and axillary views of the right shoulder. FINDINGS: The bones and soft tissues are normal. No fracture. Glenohumeral and acromioclavicular alignment is anatomic with normal joint space. No abnormal soft tissue calcifications. XR/XR shoulder LT min 2V IMPRESSION: Normal right shoulder. EXAMINATION: XR SHOULDER, LEFT CLINICAL INFORMATION: Pain. COMPARISON: None available. TECHNIQUE: AP external rotation, Grashey, scapular Y, and axillary views of the left shoulder. FINDINGS: The bones and soft tissues are normal. No fracture. A small sclerotic, well marginated bone island is incidentally noted within the humeral head. Glenohumeral and acromioclavicular alignment is anatomic with normal joint space. No abnormal soft tissue calcifications. IMPRESSION: Normal left shoulder.
--- NOTE | ~2023-10-08 | XR_ITS ---
EXAMINATION: XR MANDIBLE CLINICAL INFORMATION: Jaw pain. COMPARISON: None available. TECHNIQUE: 5 views of the mandible were obtained. FINDINGS: There are no fractures or dislocations. No bone, joint or soft tissue abnormality is demonstrated. XR/XR mandible <4V IMPRESSION: Unremarkable examination.
== END 2023-10-08 13:16 | disposition home or self-care (01) ==
LOC: HO.XRAY 13:15
PROVIDERS: PCP Internal Medicine; Visit Provider Internal Medicine
DX: M54.2 Cervicalgia (principal); R68.84 Jaw pain; M25.511 Pain in right shoulder; M25.512 Pain in left shoulder; J84.89 Other specified interstitial pulmonary diseases
CPT/HCPCS: 70100; 70220; 72040; 73030

== ENCOUNTER 2023-10-18 11:54 | Outpatient (AMB) | payer OTHER, SELFPAY ==
--- NOTE | 2023-10-18 11:57 | AM.OFFWIN_ITS ---
Intake Vital Signs 10/18/23 11:59 Height 5 ft 10 in Weight 192 lb BMI 27.5 BP 114/70 Blood Pressure Location Lt brachial Position Sitting Pulse 69 Pulse Source Pulse Oximeter Temp 98.3 F Temp Source Oral Pulse Oximetry (%) 99 Oxygen Delivery Method Room Air Intake Visit Reasons: EP headache body pain dizziness sinus pressure Intake Note: pt here c/o headache,body pain, dizziness and sinus pressure Patient Tobacco Use Status: Former Tobacco user Allergies atomoxetine [From Strattera] Adverse Reaction (Intermediate, Verified 10/18/23 11:59) Insomnia bupropion [From Wellbutrin] Adverse Reaction (Intermediate, Verified 10/18/23 11:59) Agitated escitalopram [From Lexapro] Adverse Reaction (Intermediate, Verified 10/18/23 11:59) Insomnia sertraline [From Zoloft] Adverse Reaction (Intermediate, Verified 10/18/23 11:59) Nausea trazodone Adverse Reaction (Intermediate, Verified 10/18/23 11:59) not effective stone fruit Allergy (Uncoded 10/18/23 11:59) Swelling Do you need a note to return to daycare/school/sports/work: No HPI EP headache body pain dizziness sinus pressure HPI Details This note is constructed using voice recognition software. While every effort has been made to ensure accuracy, offset pressman errors may have been included. The patient is a 28 year old male who presents to the clinic today with 1-1/2 years history of intermittent body pain, sinus congestion, and just feeling of unwell. He notes that he is not having fevers, chills, cough, runny nose. He was recently treated for a sinus infection and he feels that that has nearly resolved. He reports that he gets palpitations at times, and gets chest pain in different locations throughout his chest wall, with arm pain, and that these occur when he is in a heightened. Of anxiety. Notes that he has a prescription for lorazepam, which he is nearly out of he also has a prescription of hydroxyzine which he is not tried in some time. He is currently followed by psychiatrist, but is not able to get into counseling though he is attempting to get into counseling. He has tried antidepressants in the past but feels that he got serotonin syndrome so he is reluctant to try them again. His psychiatrist is considering trial of mood stabilizers for him. He does feel that this may be an exacerbation of his anxiety and panic attack which he is had several in the last couple of years. He notes that in the past he is even been seen in the emergency room as he felt that the chest pain was much worse at that time, and he did not feel that this was helpful to go in to the emergency room as the higher level of care led to increased anxiety over his overall health. He was also recently seen by his PCP for his body aches, and imaging was ordered at that time, reports are not currently available. He reports that the body aches have been intermittent and in the similar areas for over 1 year. [facility] Medical History Major depressive disorder Anxiety Dyspnea Surgical History No pertinent past surgical history Family History Father No problems noted. Mother Multiple sclerosis Other Substance use disorder Social History Housing: Apartment Alcohol intake: current Alcohol intake frequency: holidays/special occasions only Alcohol type: beer, wine and hard liquor Patient Tobacco Use Status: Former Tobacco user Tobacco use type: Smokeless Tobacco e-Cigarette/Vaping Use: Currently Using Second Hand Smoke Exposure: No Substance Use Type: Marijuana service: No Current occupational status: unemployed Cognitive needs: No Hearing needs: No Vision needs: Yes (glasses) Review of Systems Const All systems reviewed & are unremarkable except as noted in HPI and below Physical Exam Vital Signs: Last Vital Signs Temp 98.3 F 10/18/23 11:59 Pulse 69 10/18/23 11:59 BP 114/70 10/18/23 11:59 Pulse Ox 99 10/18/23 11:59 Oxygen Delivery Method Room Air 10/18/23 11:59 BMI result Body Mass Index 27.5 Const General: cooperative, healthy appearing, comfortable, no acute distress and alert Orientation/consciousness: patient oriented x3 Limitations: no limitations HEENT Head: Yes normal to inspection and Yes normocephalic Ears: hearing grossly normal bilaterally General nose exam: Normal external nose present Face and sinus: Yes normal facial exam and Yes sinuses nontender Mouth: Normal oral and palatal mucosa present and tongue normal Teeth and gingiva: dentition normal Throat: Yes posterior oropharynx normal Eyes General: appearance normal, both eyes and all related structures Neck Neck: Yes normal visual inspection, Yes full ROM and Yes no lymphadenopathy Resp Effort & Inspection: normal respiratory effort and able to speak in complete sentences Auscultation: clear to auscultation bilaterally Cardio Jugular venous distension: no JVD Palpation: normal PMI Rate: regular rate Heart sounds: S1 normal heart sound present, S2 normal heart sound present, no click, no gallops, no murmurs and no rubs GI Inspection: Yes normal to inspection Palpation (GI): Soft to palpation and nontender Percussion: Yes normal to percussion Auscultation: normal bowel sounds Skin General skin exam: no rashes or lesions noted, elasticity normal and turgor normal Neuro General: patient oriented x3 Extrem General: Yes normal to inspection, Yes full ROM, Yes capillary refill normal and Yes normal exam except as noted Psych Appearance: grossly normal Mental Status: mental status grossly normal Speech and movement: Normal speech and movement present Affect: normal affect Assessment & Plan Assessment & Plan (1) Anxiety, generalized: Code(s): F41.1 - Generalized anxiety disorder Plan: Reassuring physical examination today, symptoms are chronic and intermittent, and may be reflective of worsening anxiety. Advised patient to try a meditation, continue with Psychiatry, and consider counseling. Additionally reviewed appropriate use of his hydroxyzine, which she is not been using, and advised him to try this as this may help his symptoms improve at least slightly. Advised emergency room with chest pain, unresolved palpitations, as well as dyspnea, or overall worsening acute symptoms. Plan See above for full details and plan. Coding Level of Care Code Est Pt Level 4 (65892) Diagnoses Anxiety, generalized F41.1 Time Spent (min) 25
[2023-10-18 11:59] VITALS: BP 114/70; PULSE 69; TEMP 36.8; O2SAT 99; BMI 27.5
== END 2023-10-18 13:01 | disposition home or self-care (01) ==
PROVIDERS: PCP Internal Medicine; Visit Provider Registered Nurse
DX: F41.1 Generalized anxiety disorder (principal)
CPT/HCPCS: 99213

== ENCOUNTER 2024-08-22 12:32 | Outpatient (AMB) | payer OTHER, SELFPAY ==
--- OUTSIDE RECORDS SUMMARY | 2024-08-22 12:37 | XMS_ITS | Clinical Summary ---
Author Organization [facility] [address] [place] [address] [place] [address] Phone Care Team Providers Care Associate Software Developer Name Role Phone Ana Hooks MD Primary Care Provider [phone] Allergies No known active allergies Medications albuterol HFA (PROAIR HFA ; PROVENTIL HFA ; VENTOLIN HFA) 90 mcg/actuation inhaler Inhale 2 puffs by mouth every 6 (six) hours if needed for wheezing. 09/02/2023 Active Active Problems Problem Noted Date Diagnosed Date Depression 08/14/2024 Other specified attention de ficit hyperactivity disorder (ADHD) 08/14/2024 Anxiety 08/14/2024 Asthma 08/14/2024 Vitamin D deficiency 08/14/2024 Seasonal allergies 08/14/2024 Encounters Date Type Department Care Team Description 08/14/2024 2:30 PM EDT Office Visit Adult Medicine [address] [phone] Jesenia Alexandra PA Routine physical examination (Primary Dx); Encounter to establish care; Episode of recurrent major depressive disorder, unspecified depression episode severity (CMS/HCC V24); Fatigue, unspecified type; Vitamin D deficiency; Left hip pain; Mild intermittent asthma without complication; Seasonal allergies from Last 3 Months Immunizations Name Administration Dates Next Due Td Tetanus diptheria, preser vative free (Tenivac) 7yo and older 05/15/2015 Family History Medical History Relation Name Comments Mental illness Father suicide Lung cancer Maternal Grandmother Alcohol abuse Mother Alcohol abuse Paternal Grandfather Depression Paternal Grandmother Heart disease Paternal Grandmother Relation Name Status Comments Father Maternal Grandmother Mother Paternal Grandfather Paternal Grandmother Social History Tobacco Use Types Packs/Day Years Used Date Smoking Tobacco: Former Cigarettes Smokeless Tobacco: Never Comments:Smoked 0.3 ppd then vaped for 10 asthma Alcohol Use Standard Drinks/Week Comments Yes 0 (1 standard drink = 0.6 oz pur e alcohol) rare Housing Instability Answer Date Recorde d Are you worried that in the next 2 months you may not have stable housing? No 08/10/2024 Food Access & Nutrition Answer Date Rec orded Do you have access to a vari ety of food including fruits and vegetables? No 08/10/2024 Health Literacy Answer Date Recorded How often do you need to hav e someone help you when you read instructions, pamphlets, or other written material from your doctor or pharmacy? Never 08/10/2024 Caregiver: How often do you need to have someone help you when you read instructions, pamphlets, or other written material from your doctor or pharmacy? Not on file 08/10/2024 Financial Risk Answer Date Recorded How hard is it for you to pa y for the very basics like food, housing, medical care, and air conditioning / heating? Not very hard 08/10/2024 Transportation Answer Date Recorded Has the lack of transportati on kept you from meetings, work, or from getting things needed for daily living? No Has the lack of transportati on kept you from medical appointments or from getting medications? No 08/10/2024 Social Isolation Answer Date Recorded How often do you feel lonely or isolated from th ose around you? Often 08/10/2024 Food Risk Answer Date Recorded Within the past 12 months we worried whether our food would run out before we got money to buy more. Sometimes true 025 Within the past 12 months th e food we bought just didn't last and we didn't have money to get more. Sometimes true 08/10/2024 Dependent Care Answer Date Recorded Do you need help finding or paying for care for your loved ones. For example, child care centre manager or elderly care for an older adult? No 08/10/2024 Education Answer Date Recorded Do you think completing more education or training, like finishing a GED, going to college, or learning a trade, would be helpful for you? No 08/10/2024 Employment and Income Answer Date Recor ded During the last four weeks, have you been actively looking for work? No 08/10/2024 Living Situation Answer Date Recorded What is your living situation? 0 08/10/2024 Sex and Gender Information Value Date Recorded Sex Assigned at Not on file Legal Sex Male 11:41 AM EDT Gender Identity Not on file Sexual Orientation Not on file Obstetrics History Last Filed Vital Signs Vital Sign Reading Time Taken Comments Blood Pressure 140/80 08/14/2024 2:16 PM EDT Pulse 60 08/14/2024 2:16 PM EDT Temperature 36.6 ??C (97.9 ??F) 08/14/2024 2:16 PM ED T Respiratory Rate 12 08/14/2024 2:16 PM EDT Oxygen Saturation - - Inhaled Oxygen Concentration - - Weight 89.2 kg (196 lb 9.6 oz) 08/14/2024 2:16 P M EDT Height 177.8 cm (5' 10 ) 08/14/2024 2:16 PM EDT Body Mass Index 28.21 08/14/2024 2:16 PM EDT Plan of Treatment Upcoming Encounters Date Type Department Care Team (Late st Contact Info) Description 11/22/2024 2:30 PM EDT Office Visit Adult Medicine [address] [phone] Ana Hooks MD [address] [place] [id number] Health Maintenance Due Date Last Done Comments Hepatitis B Vaccines (1 of 3 - 19+ 3-dose series) 02/05/2015 Pneumococcal Vaccine: Pediatrics (0 to 5 Years) and At-Risk Patients (6 to 64 Years) (1 of 2 - PCV) 02/05/2015 HIV Screening 01/09/2024 Hepatitis C Screening 01/09/2024 Influenza Vaccine (Season Ended) 2024 DTaP,Tdap,and Td Vaccines (2 - Td or Tdap) 05/15/2025 05/15/2015 Depression Screening 08/10/2025 08/10/2024 Social Influencers of Health Screening 08/10/2025 08/10/2024 COVID-19 Vaccine Discontinued 08/01/2020, 07/04/2020 HIB Vaccines Aged Out No longer eligi ble based on patient's age to complete this topic HPV Vaccines Aged Out No longer eligi ble based on patient's age to complete this topic Hepatitis A Vaccines Aged Out No long er eligible based on patient's age to complete this topic IPV Vaccines Aged Out No longer eligi ble based on patient's age to complete this topic MMR Vaccines Aged Out No longer eligi ble based on patient's age to complete this topic Meningococcal ACWY Vaccine Aged Out N o longer eligible based on patient's age to complete this topic Meningococcal B Vaccine Aged Out No l onger eligible based on patient's age to complete this topic RSV Immunization Patients Under 20 months Aged Out No longer eligible based on patient's age to complete this topic Varicella Vaccines Aged Out No longer eligible based on patient's age to complete this topic Insurance [facility] Care Teams Associate Software Developer Relationship Specialty Start Date End Date Ana Hooks MD [address] [place] [address] [phone] PCP - General 10/01/23
[2024-08-22 13:51] VITALS: BP 110/72; PULSE 58; O2SAT 98
--- NOTE | 2024-08-22 13:51 | AM.OFFWIN_ITS ---
Intake Vital Signs 08/22/24 13:51 Weight 194 lb BP 110/72 Blood Pressure Location Lt brachial Position Sitting Pulse 58 Pulse Source Pulse Oximeter Pulse Oximetry (%) 98 Oxygen Delivery Method Room Air Intake Visit Reasons: EP LT leg pain Intake Note: Patient here for left leg pain that has been present for about 2 1/2 weeks. Patient Tobacco Use Status: Former Tobacco user Allergies atomoxetine [From Strattera] Adverse Reaction (Intermediate, Verified 08/22/24 13:53) Insomnia bupropion [From Wellbutrin] Adverse Reaction (Intermediate, Verified 08/22/24 13:53) Agitated escitalopram [From Lexapro] Adverse Reaction (Intermediate, Verified 08/22/24 13:53) Insomnia sertraline [From Zoloft] Adverse Reaction (Intermediate, Verified 08/22/24 13:53) Nausea trazodone Adverse Reaction (Intermediate, Verified 08/22/24 13:53) not effective stone fruit Allergy (Uncoded 08/22/24 13:53) Swelling Do you need a note to return to daycare/school/sports/work: No HPI HPI Comments History of Present Illness Details 29 y/o Male patient who presents to the walk in clinic with c/o Left hip Pain of/off for few years now. Reports pain getting worse in the 2 weeks. Reports pain with walking and standing for prolonged period. Denies any recent injury or trauma to the Hip. He does remember an old injury - where he fell off a skate board when he was young. Denies any broken bones at that time. [facility] Medical History (Updated 08/22/24 @ 14:36 by Renata Lee NP) Left hip pain Major depressive disorder Anxiety Dyspnea Surgical History No pertinent past surgical history Family History Father No problems noted. Mother Multiple sclerosis Other Substance use disorder Social History Housing: Apartment Alcohol intake: current Alcohol intake frequency: holidays/special occasions only Alcohol type: beer, wine and hard liquor Patient Tobacco Use Status: Former Tobacco user Tobacco use type: Smokeless Tobacco e-Cigarette/Vaping Use: Currently Using Second Hand Smoke Exposure: No Substance Use Type: Marijuana service: No Current occupational status: unemployed Cognitive needs: No Hearing needs: No Vision needs: Yes (glasses) Review of Systems Const All systems reviewed & are unremarkable except as noted in HPI and below Physical Exam Vital Signs: Last Vital Signs Pulse 58 08/22/24 13:51 BP 110/72 08/22/24 13:51 Pulse Ox 98 08/22/24 13:51 Oxygen Delivery Method Room Air 08/22/24 13:51 Const General: no acute distress Nutritional Appearance: thin Orientation/consciousness: patient oriented x3 Neuro General: patient oriented x3 Extrem Right lower extremity: normal to inspection and full ROM Left lower extremity: normal to inspection, full ROM and hip/thigh Details: tenderness Location: of the hip and of the proximal upper leg and normal ROM; no abrasions, no lacerations and no ecchymosis Psych Speech and movement: Normal speech and movement present Assessment & Plan Assessment & Plan (1) Left hip pain: Code(s): M25.552 - Pain in left hip Plan: Ordered Xray Hip to r/o Fracture. Possible Muscle strain vs Sprain Acetaminophen and Flexeril. Orders: Orders 2 XR hip LT min 2V Today M25.552 - Pain in left hip Medications: New acetaminophen 1,000 mg (2 x 500 mg) PO Q6H PRN 30 caps 0RF pain M25.552 - Pain in left hip cyclobenzaprine 5 mg PO BEDTIME 10 tabs 0RF M25.552 - Pain in left hip Changed From meloxicam 15 mg PO DAILY 7 days PRN 7 tabs 0RF pain M25.552 - Pain in left hip To meloxicam 15 mg PO DAILY 14 tabs 0RF pain 14 days M25.552 - Pain in left hip Coding Level of Care Code Est Pt Level 4 (89313) Diagnoses Left hip pain M25.552 Time Spent (min) 20
== END 2024-08-22 14:53 | disposition home or self-care (01) ==
PROVIDERS: PCP Internal Medicine; Visit Provider Nurse Practitioner Family
DX: M25.552 Pain in left hip (principal)

== ENCOUNTER 2024-08-22 12:32 | Outpatient (REF) | payer OTHER, SELFPAY ==
--- NOTE | ~2024-08-22 | XR_ITS ---
EXAMINATION: XR HIP, LEFT CLINICAL INFORMATION: M25.552 - Pain in left hip COMPARISON: None available. TECHNIQUE: Two views of the left hip. FINDINGS: No fracture. Alignment is anatomic. Hip joint space is maintained. Normal acetabular coverage. Soft tissues are unremarkable. XR/XR hip LT min 2V IMPRESSION: Normal left hip. Electronically signed by: Lavon Rosales MD 08/22/2024 03:29 PM EDT
== END 2024-08-22 12:33 | disposition home or self-care (01) ==
LOC: HO.HMGCX 12:32
PROVIDERS: PCP Physician Assistant; Visit Provider Nurse Practitioner Family
DX: M25.552 Pain in left hip (principal)
CPT/HCPCS: 73502; 99212

== ENCOUNTER → 2024-08-22 14:45 | Outpatient (BNV) | payer OTHER, SELFPAY | PROVIDERS: PCP Physician Assistant; Visit Provider Radiology Diagnostic Radiology | DX: M25.552 Pain in left hip (principal) | CPT/HCPCS: 73502 ==

== ENCOUNTER 2024-10-09 11:37 | Outpatient (AMB) | payer OTHER, SELFPAY ==
[2024-10-09 12:32] VITALS: BP 106/60; PULSE 58; TEMP 36.6; O2SAT 99; BMI 28.0
--- NOTE | 2024-10-09 12:32 | AM.OFFWIN_ITS ---
Intake Vital Signs 10/09/24 12:32 Height 5 ft 10 in Weight 195 lb BMI 28.0 BP 106/60 Blood Pressure Location Lt brachial Position Sitting Pulse 58 Pulse Source Pulse Oximeter Temp 98 F Temp Source Oral Pulse Oximetry (%) 99 Intake Visit Reasons: EP food poisoning Intake Note: presents with diarrhea and vomiting for 2 days, body weakness Patient Tobacco Use Status: Former Tobacco user Allergies atomoxetine (From Strattera) Adverse Reaction (Intermediate, Verified 10/09/24 12:38) Insomnia bupropion (From Wellbutrin) Adverse Reaction (Intermediate, Verified 10/09/24 12:38) Agitated escitalopram (From Lexapro) Adverse Reaction (Intermediate, Verified 10/09/24 12:38) Insomnia sertraline (From Zoloft) Adverse Reaction (Intermediate, Verified 10/09/24 12:38) Nausea trazodone Adverse Reaction (Intermediate, Verified 10/09/24 12:38) not effective stone fruit Allergy (Uncoded 08/22/24 13:53) Swelling Do you need a note to return to daycare/school/sports/work: Yes Return to daycare/school/sports/work/other note: work HPI HPI Comments History of Present Illness Details 29 y/o Male patient who presents to the walk in clinic asking for a doctor's note. Pt had GI upset over the weekend and he missed work for 2 days. Pt did not seek medical attention, he used OTC remedies. Reports that symptoms have since subsided. [facility] Medical History (Updated 10/09/24 @ 13:35 by Renata Lee NP) Nausea vomiting and diarrhea Left hip pain Major depressive disorder Anxiety Dyspnea Surgical History No pertinent past surgical history Family History Father No problems noted. Mother Multiple sclerosis Other Substance use disorder Social History Housing: Apartment Alcohol intake: current Alcohol intake frequency: holidays/special occasions only Alcohol type: beer, wine and hard liquor Patient Tobacco Use Status: Former Tobacco user Tobacco use type: Smokeless Tobacco e-Cigarette/Vaping Use: Currently Using Second Hand Smoke Exposure: No Substance Use Type: Marijuana service: No Current occupational status: unemployed Cognitive needs: No Hearing needs: No Vision needs: Yes (glasses) Review of Systems Const All systems reviewed & are unremarkable except as noted in HPI and below Physical Exam Vital Signs: Last Vital Signs Temp 98 F 10/09/24 12:32 Pulse 58 10/09/24 12:32 BP 106/60 10/09/24 12:32 Pulse Ox 99 10/09/24 12:32 BMI result Body Mass Index 28.0 Const General: no acute distress Nutritional Appearance: thin Orientation/consciousness: patient oriented x3 Resp Effort & Inspection: normal respiratory effort Auscultation: clear to auscultation bilaterally Cardio Heart sounds: S1 normal heart sound present and S2 normal heart sound present Neuro General: patient oriented x3 Assessment & Plan Assessment & Plan (1) Nausea vomiting and diarrhea: Code(s): R11.2 - Nausea with vomiting, unspecified; R19.7 - Diarrhea, unspecified Plan: Symptoms resolved Work Note given to Patient for Today only. Coding Level of Care Code Est Pt Level 4 (75455) Diagnoses Nausea vomiting and diarrhea R11.2; R19.7 Time Spent (min) 20
--- OUTSIDE RECORDS SUMMARY | 2024-10-09 12:46 | XMS_ITS | Clinical Summary ---
Author Organization [facility] [address] [place] [address] [place] [address] Phone Care Team Providers Care Environmental Service Aide Name Role Phone Ana Hooks MD Primary Care Provider [phone] Allergies No known active allergies Medications albuterol [...] 2:30 PM EDT Office Visit Adult Medicine [address] [phone] Jesenia Alexandra PA Routine physical examination (Primary [...] for your loved ones. For example, child guidance counselor or elderly care for an older adult? [...] 60 08/14/2024 2:16 PM EDT Temperature 36.6 C (97.9 F) 08/14/2024 2:16 PM EDT Respiratory Rate 12 08/14/2024 2:16 PM EDT [...] 2:30 PM EDT Office Visit Adult Medicine [address] [phone] Ana Hooks MD [address] [place] [phone] Health Maintenance Due Date Last Done Comments Hepatitis B Vaccines (1 of 3 - 19+ 3-dose series) 02/05/2015 Pneumococcal Vaccine: Pediatrics (0 to 5 Years) and At-Risk Patients (6 to 49 Years) (1 of 2 - PCV) 02/05/2015 HIV Screening 01/09/2024 Hepatitis C Screening 01/09/2024 Influenza Vaccine (#1) 2024 DTaP,Tdap,and Td Vaccines (2 - Td [...] patient's age to complete this topic Insurance [facility] Care Teams Environmental Service Aide Relationship Specialty Start Date End Date Ana Hooks MD [address] [place] [address] [phone] PCP - General 10/01/23
== END 2024-10-09 13:27 | disposition home or self-care (01) ==
PROVIDERS: PCP Internal Medicine; Visit Provider Nurse Practitioner Family
DX: R11.2 Nausea with vomiting, unspecified (principal); R19.7 Diarrhea, unspecified

== ENCOUNTER → 2024-10-09 11:37 | Outpatient (BNVA) | payer OTHER, SELFPAY | PROVIDERS: PCP Internal Medicine; Visit Provider Nurse Practitioner Family | DX: R11.2 Nausea with vomiting, unspecified (principal); R19.7 Diarrhea, unspecified | CPT/HCPCS: 99212 ==

== ENCOUNTER 2024-10-25 14:51 | Outpatient (AMB) | payer OTHER, SELFPAY ==
--- NOTE | 2024-10-25 15:04 | MHC.PC.OV ---
Vital Signs 10/25/24 15:05 Height 5 ft 10 in Weight 195 lb 2 oz BMI 28.0 BP 100/60 Blood Pressure Location Lt brachial Position Sitting Pulse 51 Pulse Source Pulse Oximeter Temp 97.3 F Temp Source Temporal Artery Scan Pulse Oximetry (%) 99 Oxygen Delivery Method Room Air Intake Visit Reasons: Leg Pain Intake Note: Patient is here to follow up Complaint of low energy and difficulty sleeping. Metal Pourer Required: No Vacuum Cleaner Assembler: Not Required per policy Accompanied by: Self / Same As Patient Allergies atomoxetine (From Strattera) Adverse Reaction (Intermediate, Verified 10/25/24 15:25) Insomnia bupropion (From Wellbutrin) Adverse Reaction (Intermediate, Verified 10/25/24 15:25) Agitated escitalopram (From Lexapro) Adverse Reaction (Intermediate, Verified 10/25/24 15:25) Insomnia sertraline (From Zoloft) Adverse Reaction (Intermediate, Verified 10/25/24 15:25) Nausea trazodone Adverse Reaction (Intermediate, Verified 10/25/24 15:25) not effective stone fruit Allergy (Uncoded 10/25/24 15:25) Swelling Medication List - Last Reconciled 10/25/24 by Tony Garibay PA-C acetaminophen 1,000 mg (2 x 500 mg) PO Q6H PRN albuterol sulfate 90 mcg/actuation (Ventolin HFA) 2 puffs inhalation Q6H PRN Tobacco use date assessed: 10/25/24 Dental Screening Dental Screen Date: 10/25/24 Did you have a dental visit in the last 12 months?: No Did you have a dental problem in the last 6 months where you did not have access to dental care?: No Was dental information given to patient?: No HPI Leg Pain HPI Details The patient is a 29-year-old male presenting with fatigue and insomnia. Patient has a past medical history of depression, anxiety and tobacco dependency. Former Tobacco dependency : He reports quitting smoking in May, approximately four months ago, after experiencing the flu, and has since been nicotine-free. He initially used nicotine gum but transitioned to regular gum, specifically spearmint, which he now prefers. ? Greater trochanteric bursitis left: The patient experienced a severe leg problem previously, characterized by an inability to stand and a sensation of impending hip explosion, which resolved spontaneously. He suspects it was hip bursitis, as the pain radiated down the leg to the ankle, and he managed it with stretching and compression at work. He reports improved breathing since quitting smoking, with no recent use of his inhaler. He has been experiencing persistent fatigue despite adequate sleep, with episodes of brain fog and disrupted sleep patterns. Melatonin has been somewhat effective in initiating sleep, but he continues to wake frequently during the night. The patient has a history of anxiety, which has improved since quitting smoking, though he still experiences situational anxiety. He does not currently engage with mental health services. He reports low blood pressure, with previous readings of 106 and 110, and a recent reading of 100, which may contribute to his fatigue. [facility] Medical History Nausea vomiting and diarrhea Left hip pain Major depressive disorder Anxiety Dyspnea Surgical History No pertinent past surgical history Family History Father No problems noted. Mother Multiple sclerosis Other Substance use disorder Social History Housing: Apartment Alcohol intake: current Alcohol intake frequency: holidays/special occasions only Alcohol type: beer, wine and hard liquor Patient Tobacco Use Status: Former Tobacco user Tobacco use type: Smokeless Tobacco e-Cigarette/Vaping Use: Former Use Second Hand Smoke Exposure: No Substance Use Type: Marijuana service: No Current occupational status: unemployed Cognitive needs: No Hearing needs: No Vision needs: Yes (glasses) Questionnaire PHQ-9 Over the last 2 weeks, how often have you been bothered by any of the following problems? 1. Little interest or pleasure in doing things: several days 2. Feeling down, depressed, or hopeless: several days 3. Trouble falling or staying asleep, or sleeping too much: several days 4. Feeling tired or having little energy: several days 5. Poor appetite or overeating: several days 6. Feeling bad about yourself - or that you are a failure or have let yourself or your family down: several days 7. Trouble concentrating on things, such as reading the newspaper or watching television: several days 8. Moving or speaking so slowly that other people could have noticed. Or the opposite - being so fidgety or restless that you have been moving around a lot more than usual: several days 9. Thoughts that you would be better off or of hurting yourself in some way: not at all Total score: 8 Depression Screening Interpretation: Positive Depression Screening Follow-up: Existing condition and Declines treatment Depression Screening Done: Yes 72657 - PHQ-9 Billing: Yes Source: Developed by Drs. Skip Tavarez, Liliam Barney, Tejas Nicholas and colleagues, with an educational kelvin from [employer]. Thrive Questionnaire Date Thrive assessed: 10/23/24 I am a: Patient What is your living situation today?: I have a steady place to live Within the past 12 months, did the food you bought not last and you didn't have the money to get more?: I choose not to answer this question Within the past 12 months, did you worry whether your food would run out before you got money to buy more?: I choose not to answer this question Do you have trouble paying for medicines?: I choose not to answer this question Do you have trouble getting transportation to medical appointments?: I choose not to answer this question Do you have trouble paying your heating and electricity bill?: I choose not to answer this question Do you have trouble taking care of your child, family member or friend?: I choose not to answer this question Do you have trouble with day-to-day activities such as bathing, preparing meals, shopping, managing finances, etc.?: I choose not to answer this question Are you currently unemployed and looking for a job?: No Are you interested in more education?: I choose not to answer this question Please select the resources that you would like help with: None Currently or been in a relationship where the following occur: No concerns reported THRIVE Score: 0 AUDIT C Alcohol Use Questionnaire (AUDIT-C) 1. How often do you have a drink containing alcohol?: Monthly or less 2. How many drinks containing alcohol do you have on a typical day when you are drinking?: 1 or 2 3. How often do you have six or more drinks on one occasion?: Never Total Score: 1 CITLALY-7 AMB Questionnaire CITLALY-7 Date CITLALY - 7 assessed: 10/25/24 Feeling nervous, anxious, or on edge: 2 = More than half the days Not being able to stop or control worryin = Several days Worrying too much about different things: 0 = Not at all Trouble relaxin = Several days Being so restless that it is hard to sit still: 1 = Several days Becoming easily annoyed or irritable: 1 = Several days Feeling afraid as if something awful might happen: 0 = Not at all Total CITLALY-7 score (0-4 normal; 5-9 mild; 10-14 moderate; 15-21 severe): 6 Source: Developed by Drs. Skip Tavarez, Liliam Barney, Tejas Nicholas and colleagues, with an educational kelvin from [employer]. CITLALY-7 Assessment Billing CITLALY-7 Assessment Tool: CITLALY-7 Assessment 70829 Review of Systems Const Denies headache(s) Eyes Denies loss of vision ENT Denies vertigo, Denies dizziness, Denies headache(s) and Denies sore throat Card Denies chest pain, Denies leg edema and Denies lightheadedness Resp Denies cough, Denies hemoptysis and Denies wheezing GI Denies abdominal pain, Denies melena, Denies constipation, Denies diarrhea and Denies vomiting Denies dysuria, Denies urinary frequency and Denies urinary urgency Musc Denies arthralgias, Denies joint swelling, Denies numbness and Denies tingling Neuro Denies Abnormal speech present, Denies behavioral changes, Denies vertigo, Denies dizziness, Denies headache(s), Denies loss of vision, Denies memory loss, Denies numbness and Denies tingling Psych Reports abnormal sleep pattern, Reports anxiety, Denies behavioral changes, Reports depression, Denies memory loss and Denies panic attacks Beau/Lymph Denies easy bleeding and Denies easy bruising Aller/Immun Denies wheezing Physical exam (Primary Care) Vital Signs: Last Vital Signs Temp 97.3 F 10/25/24 15:05 Pulse 51 10/25/24 15:05 BP 100/60 10/25/24 15:05 Pulse Ox 99 10/25/24 15:05 Oxygen Delivery Method Room Air 10/25/24 15:05 BMI result Body Mass Index 28.0 Tobacco/Smoking Status: Tobacco use Status Tobacco use date assessed 10/25/24 10/25/24 15:14 Patient Tobacco Use Status Former Tobacco user 10/25/24 15:14 Tobacco use type Smokeless Tobacco 10/25/24 15:14 e-Cigarette/Vaping Use Former Use 10/25/24 15:14 PHQ-9: PHQ-9 Score PHQ-9: Total score 8 10/25/24 15:28 Depression Screening Interpretation: Positive Depression Screening Follow-up: Existing condition and Declines treatment Thrive Assessment: Date of Thrive Assessment Date Thrive assessed 10/23/24 10/25/24 15:14 Currently or been in a relationship where the following occur: No concerns reported Const General: healthy appearing, no acute distress, alert and awake Nutritional Appearance: well nourished Orientation/consciousness: oriented to person, oriented to place and oriented to time HENMT Ears: TM's normal bilaterally General nose exam: Normal nasal mucous membranes and turbinates present Eyes Conjunctivae: conjunctivae normal Sclerae: sclerae normal Pupils: Equal, round and reactive pupils present Neck Neck: Yes no lymphadenopathy and Yes no JVD Thyroid: Thyroid normal Carotids: no bruits Resp Effort & Inspection: normal respiratory effort and not tachypneic Auscultation: no crackles, no rales, no rhonchi and no wheezes Cardio Rate: regular rate Rhythm: regular rhythm Heart sounds: no murmurs and normal S1 and S2 GI Palpation (GI): Soft to palpation, nontender, no hepatomegaly and no splenomegaly Auscultation: normal bowel sounds Skin General skin exam: no rashes or lesions noted and dry skin Neuro General: oriented to person, oriented to place and oriented to time Cranial nerves: Yes Equal, round and reactive pupils present Speech: No Abnormal speech present Gait exam (Neuro): Normal gait present Motor exam (neuro): no tremor noted Extrem Right upper extremity: full ROM Left upper extremity: full ROM Right lower extremity: full ROM; no edema Left lower extremity: full ROM; no edema Psych Mental Status: mental status grossly normal Speech and movement: Normal speech and movement present Affect: normal affect Attitude: cooperative Thought process: Normal thought process present Coding Level of Care Code Est Pt Level 4 (16238) Diagnoses Other fatigue R53.83 Fatigue type: other Anxiety F41.9 MDD (major depressive disorder), recurrent episode, mild F33.0 Idiopathic hypotension I95.0 Hypotension type: idiopathic hypotension Additional Codes PHQ-9 - 22396 - PHQ-9 Billing: Yes ([id number]) CITLALY-7 Assessment Billing - CITLALY-7 Assessment Tool: CITLALY-7 Assessment 56817 ([id number]) Assessment & Plan Assessment & Plan (1) Fatigue: Code(s): R53.83 - Other fatigue Category: Medical Qualifiers: Fatigue type: other Qualified Code(s): R53.83 - Other fatigue Plan: The patient reports persistent insomnia characterized by difficulty maintaining sleep despite melatonin use. Sleep hygiene measures and exercise are recommended to improve sleep quality. (2) Anxiety: Code(s): F41.9 - Anxiety disorder, unspecified Category: Medical Plan: Patient's CITLALY-7 score positive for anxiety which has been existing condition for him. He is now off of all mental health medication as they have not been effective for him. Since he has stopped smoking his anxiety has been much better in more manageable. (3) MDD (major depressive disorder), recurrent episode, mild: Code(s): F33.0 - Major depressive disorder, recurrent, mild Category: Medical Plan: Patient's PHQ-9 score positive for depression which has been existing condition for him. Again he is not interested in mental health therapy at this time and has tried many medications in the past though have not worked out for him. Again since he has stopped smoking he reports his mental health has been much better. (4) Hypotension: Code(s): I95.9 - Hypotension, unspecified Category: Medical Qualifiers: Hypotension type: idiopathic hypotension Qualified Code(s): I95.0 - Idiopathic hypotension Plan: The patient reports low blood pressure, which may contribute to fatigue. Increased sodium intake and hydration are recommended to manage symptoms.
[2024-10-25 15:05] VITALS: BP 100/60; PULSE 51; TEMP 36.3; O2SAT 99; BMI 28.0
--- OUTSIDE RECORDS SUMMARY | 2024-10-25 15:35 | XMS_ITS | Clinical Summary ---
Author Organization [facility] [address] [place] [address] [place] [address] Phone Care Team Providers Care Collections Representative Name Role Phone Ana Hooks MD Primary Care Provider Allergies No known active allergies Medications albuterol [...] 2:30 PM EDT Office Visit Adult Medicine [address] [phone] Jesenia Alexandra PA Routine physical examination (Primary [...] your loved ones. For example, child care teacher or elderly care for an older adult? [...] 2:30 PM EDT Office Visit Adult Medicine [address] [phone] Ana Hooks MD [address] [place] [phone] Health Maintenance Due Date Last Done Comments Hepatitis B Vaccines (1 of 3 - 19+ 3-dose series) 02/05/2015 Pneumococcal Vaccine: Pediatrics (0 to 5 Years) and At-Risk Patients (6 to 49 Years) (1 of 2 - PCV) 02/05/2015 HIV Screening 01/09/2024 Hepatitis C Screening 01/09/2024 Influenza Vaccine (#1) 2024 DTaP,Tdap,and Td Vaccines (2 - Td or Tdap) 05/15/2025 05/15/2015 Social Influencers of Health Screening 08/10/2025 08/10/2024 COVID-19 Vaccine Discontinued 08/01/2020, 07/04/2020 Depression Screening Completed 08/10/2024 HIB Vaccines Aged Out No longer eligi [...] patient's age to complete this topic Insurance [facility] Care Teams Collections Representative Relationship Specialty Start Date End Date Ana Hooks MD [address] [place] [address] [phone] PCP - General 10/01/23
== END 2024-10-25 15:41 | disposition home or self-care (01) ==
LOC: HO.HMCH 14:52
PROVIDERS: PCP Internal Medicine; Visit Provider Physician Assistant
DX: R53.83 Other fatigue (principal); F41.9 Anxiety disorder, unspecified; F33.0 Major depressive disorder, recurrent, mild; I95.0 Idiopathic hypotension

== ENCOUNTER → 2024-10-25 14:51 | Outpatient (BNVA) | payer OTHER, SELFPAY | PROVIDERS: PCP Internal Medicine; Visit Provider Physician Assistant | DX: I95.0 Idiopathic hypotension (principal); G47.00 Insomnia, unspecified; F41.9 Anxiety disorder, unspecified; F33.0 Major depressive disorder, recurrent, mild; Z87.891 Personal history of nicotine dependence | CPT/HCPCS: 96127; 99212 ==

== ENCOUNTER 2024-12-06 13:53 | Outpatient (REF) | payer OTHER, SELFPAY ==
[2024-12-06 16:23] LABS: CT PCR Urine NOT DETECTED (Not Detect.); NG PCR Urine NOT DETECTED (Not Detect.)
--- OUTSIDE RECORDS SUMMARY | 2024-12-06 16:59 | XMS_ITS | Clinical Summary ---
Author Organization [facility] [address] [place] [address] [place] [phone] Phone Care Team Providers Care Alteration Manager Name Role Phone Ana Hooks MD Primary Care Provider [phone] Allergies No known active allergies Medications albuterol HFA (PROAIR HFA ; PROVENTIL HFA ; VENTOLIN HFA) 90 mcg/actuation inhaler Inhale 2 puffs by mouth every 6 (six) hours if needed for wheezing. 09/02/2023 Active Active Problems Problem Noted Date Diagnosed Date Depression 08/14/2024 Other specified attention de ficit hyperactivity disorder (ADHD) 08/14/2024 Anxiety 08/14/2024 Asthma 08/14/2024 Vitamin D deficiency 08/14/2024 Seasonal allergies 08/14/2024 Immunizations Name Administration Dates Next Due Td [...] for your loved ones. For example, child welfare caseworker or elderly care for an older adult? [...] 08/14/2024 2:16 PM EDT Plan of Treatment Health Maintenance Due Date Last Done Comments [...] patient's age to complete this topic Insurance [facility] PL[facility] Care Teams Alteration Manager Relationship Specialty Start Date End Date Ana Hooks MD [address] [place] [phone] PCP - General 10/01/23
[2024-12-07 08:26] LABS: Syphilis Screen Nonreactive (Nonreactive)
[2024-12-07 08:55] LABS: HBS Num1 0.86 mIU/mL (0-7.99); HBc Num1 0.12 S/CO (0.00-0.79); HBsAGNum1 0.36 S/CO (0.00-0.99); HIV Num 1 0.05 S/CO (0.00-0.99); Hepatitis B Surface Antigen Negative (Negative); ~HepC Num1 0.07 S/CO (0.00-0.79); ~Hepatitis B Surface Antibody NONREACTIVE (Nonreactive); ~Hepatitis C Antibody Nonreactive (Nonreactive)
== END 2024-12-06 13:54 | disposition home or self-care (01) ==
LOC: HO.LAB 13:53
PROVIDERS: PCP Physician Assistant; Visit Provider Physician Assistant
DX: Z01.84 Encounter for antibody response examination (principal); Z11.3 Encounter for screening for infections with a predominantly sexual mode of transmission; Z11.59 Encounter for screening for other viral diseases; Z11.4 Encounter for screening for human immunodeficiency virus [HIV]; Z11.8 Encounter for screening for other infectious and parasitic diseases
CPT/HCPCS: 86704; 86706; 86780; 86803; 87340; 87389; 87491; 87591

== ENCOUNTER 2024-12-12 12:40 | Outpatient (REF) | payer OTHER, SELFPAY ==
[2024-12-12 14:06] LABS: Hematocrit 46.1 % (42.0-52.0); Hemoglobin 15.7 g/dl (14.0-18.0); Mean Corpuscular HGB Conc 34.1 g/dl (31.0-36.0); Mean Corpuscular Hemoglobin 29.3 pg (27.0-33.0); Mean Corpuscular Volume 86.2 fL (80.0-98.0); NRBC Abs Auto 0.000 X10*3/uL (0.0-0.012); NRBC Pct Auto 0.0 /100WBC (0.0-0.2); Platelet Count 255 X10*3/uL (160-400); Red Blood Count 5.35 X10*6/uL (4.60-5.80); White Blood Count 4.6 X10*3/uL (4.8-10.8)
[2024-12-12 14:30] LABS: Alanine Aminotransferase 33 U/L (0-40); Albumin Level 4.6 g/dL (3.5-5.0); Alkaline Phosphatase 74 U/L (39-117); Anion Gap 12 (12-20); Aspartate Amino Transferase 26 U/L (5-37); Blood Urea Nitrogen 27 mg/dL (9-16); Calcium 9.4 mg/dL (8.4-10.2); Carbon Dioxide 28 mmol/L (22-29); Chloride 105 mmol/L (96-108); Estimated Glomerular Filt Rate > 60; Potassium 4.2 mmol/L (3.3-5.1); Sodium 141 mmol/L (135-145); Total Protein 7.0 g/dL (6.5-8.0)
--- OUTSIDE RECORDS SUMMARY | 2024-12-12 16:40 | XMS_ITS | Clinical Summary ---
Author Organization [facility] [address] [place] [address] [place] [phone] Phone Care Team Providers Care Implementation Project Manager Name Role Phone Ana Hooks MD Primary Care Provider [phone] Allergies No known active allergies Medications albuterol [...] care for your loved ones. For example, home child care provider or elderly care for an older adult? [...] patient's age to complete this topic Insurance [facility] PLAN Care Teams Implementation Project Manager Relationship Specialty Start Date End Date Ana Hooks MD [address] [place] [phone] PCP - General 10/01/23
== END 2024-12-12 12:41 | disposition home or self-care (01) ==
LOC: HO.LAB 12:40
PROVIDERS: PCP Physician Assistant; Visit Provider Physician Assistant
DX: Z01.84 Encounter for antibody response examination (principal); Z11.3 Encounter for screening for infections with a predominantly sexual mode of transmission; Z13.1 Encounter for screening for diabetes mellitus; E55.9 Vitamin D deficiency, unspecified
CPT/HCPCS: 36415; 80053; 82306; 85027; 86695; 86696

== ENCOUNTER 2025-02-13 15:53 | Outpatient (AMB) | payer OTHER, SELFPAY ==
[2025-02-13 16:20] VITALS: BP 120/64; PULSE 57; O2SAT 98; BMI 28.2
--- NOTE | 2025-02-13 16:20 | MHC.PC.OV ---
Vital Signs 02/13/25 16:20 Height 5 ft 10 in Weight 196 lb 8 oz BMI 28.2 BP 120/64 Blood Pressure Location Lt brachial Position Sitting Pulse 57 Pulse Source Pulse Oximeter Temp Source Temporal Artery Scan Pulse Oximetry (%) 98 Oxygen Delivery Method Room Air Intake Visit Reasons: CPE Intake Note: Patient is here today for a physical. 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 per policy Accompanied by: Self / Same As Patient Allergies atomoxetine (From Strattera) Adverse Reaction (Intermediate, Verified 02/13/25 16:40) Insomnia bupropion (From Wellbutrin) Adverse Reaction (Intermediate, Verified 02/13/25 16:40) Agitated escitalopram (From Lexapro) Adverse Reaction (Intermediate, Verified 02/13/25 16:40) Insomnia sertraline (From Zoloft) Adverse Reaction (Intermediate, Verified 02/13/25 16:40) Nausea trazodone Adverse Reaction (Intermediate, Verified 02/13/25 16:40) not effective stone fruit Allergy (Uncoded 02/13/25 16:40) Swelling Medication List - Last Reconciled 02/13/25 by Tony Garibay PA-C No Known Home Meds Tobacco use date assessed: 02/13/25 Dental Screening Dental Screen Date: 02/13/25 HPI CPE HPI Details The patient is a 30-year-old male here today for an annual physical Patient has a past medical history of depression, anxiety and tobacco dependency. Former Tobacco dependency : He reports quitting smoking in May, approximately four months ago, after experiencing the flu, and has since been nicotine-free. He initially used nicotine gum but transitioned to regular gum, specifically spearmint, which he now prefers. ? Greater trochanteric bursitis left: The patient experienced a severe leg problem previously, characterized by an inability to stand and a sensation of impending hip explosion, which resolved spontaneously. He does report he works a job that he stands a long periods of time. Generalized anxiety disorder: The patient has a history of anxiety, which has improved since quitting smoking, though he still experiences situational anxiety. He does not currently engage with mental health services. He also complains of persistent insomnia, with difficulty falling asleep and staying asleep. He reports melatonin helps with sleep onset, but he is an extremely light sleeper and often cannot get to bed before midnight, sometimes staying awake until 4 a.m. Previous trials of Seroquel, trazodone, and hydroxyzine for sleep were not effective. Vaccines: UTD with Tdap, Need flu vaccine PFSH Medical History (Updated 02/14/25 @ 07:38 by Tony Garibay PA-C) Nausea vomiting and diarrhea Left hip pain Major depressive disorder Anxiety Surgical History No pertinent past surgical history Family History Father No problems noted. Mother Multiple sclerosis Other Substance use disorder Social History (Updated 02/13/25 @ 16:43 by Tony Garibay PA-C) Housing: Apartment Alcohol intake: current Alcohol intake frequency: holidays/special occasions only Alcohol type: beer, wine and hard liquor Patient Tobacco Use Status: Former Tobacco user Tobacco use type: Smokeless Tobacco e-Cigarette/Vaping Use: Former Use Second Hand Smoke Exposure: Yes Substance Use Type: Marijuana service: No Current occupational status: unemployed Cognitive needs: No Hearing needs: No Vision needs: Yes (glasses) Questionnaire Thrive Questionnaire Date Thrive assessed: 02/13/25 I am a: Patient What is your living situation today?: I have a steady place to live Within the past 12 months, did the food you bought not last and you didn't have the money to get more?: I choose not to answer this question Within the past 12 months, did you worry whether your food would run out before you got money to buy more?: I choose not to answer this question Do you have trouble paying for medicines?: I choose not to answer this question Do you have trouble getting transportation to medical appointments?: I choose not to answer this question Do you have trouble paying your heating and electricity bill?: I choose not to answer this question Do you have trouble taking care of your child, family member or friend?: I choose not to answer this question Do you have trouble with day-to-day activities such as bathing, preparing meals, shopping, managing finances, etc.?: I choose not to answer this question Are you currently unemployed and looking for a job?: No Are you interested in more education?: I choose not to answer this question Please select the resources that you would like help with: None Currently or been in a relationship where the following occur: No concerns reported THRIVE Score: 0 AUDIT C Alcohol Use Questionnaire (AUDIT-C) 1. How often do you have a drink containing alcohol?: Monthly or less 2. How many drinks containing alcohol do you have on a typical day when you are drinking?: 1 or 2 3. How often do you have six or more drinks on one occasion?: Never Total Score: 1 CITLALY-7 AMB Questionnaire CITLALY-7 Date CITLALY - 7 assessed: 10/25/24 Feeling nervous, anxious, or on edge: 2 = More than half the days Not being able to stop or control worryin = Several days Worrying too much about different things: 0 = Not at all Trouble relaxin = Several days Being so restless that it is hard to sit still: 1 = Several days Becoming easily annoyed or irritable: 1 = Several days Feeling afraid as if something awful might happen: 0 = Not at all Total CITLALY-7 score (0-4 normal; 5-9 mild; 10-14 moderate; 15-21 severe): 6 Source: Developed by Drs. Skip Tavarez, Liliam Barney, Tejas Nicholas and colleagues, with an educational kelvin from [employer]. CITLALY-7 Assessment Billing CITLALY-7 Assessment Tool: CITLALY-7 Assessment 25030 Review of Systems Const Denies body aches, Denies chills, Denies excessive sweating, Denies fatigue, Denies fever(s) and Denies headache(s) Eyes Denies blurry vision ENT Denies dysphagia, Denies vertigo, Denies dizziness, Denies headache(s), Denies hearing loss and Denies tinnitus Card Denies chest pain, Denies chest pain with activity, Denies syncope, Denies irregular heart rhythm and Denies dyspnea Resp Denies chest congestion, Denies cough, Denies hemoptysis, Denies dyspnea and Denies wheezing GI Denies abdominal pain, Denies melena, Denies hematochezia, Denies coffee ground emesis, Denies dysphagia, Denies diarrhea, Denies nausea and Denies vomiting Denies difficulty urinating, Denies dysuria, Denies urinary frequency, Denies urinary hesitancy and Denies urinary urgency Musc Denies arthralgias, Denies limited range of motion, Denies muscle cramps and Denies muscle weakness Skin/Breast Denies rash and Denies skin ulcer Neuro Denies Abnormal speech present, Denies confusion, Denies vertigo, Denies dizziness, Denies syncope, Denies headache(s), Denies memory loss and Denies seizure-like activity Psych Denies anxiety, Denies confusion, Denies depression, Denies memory loss, Denies panic attacks and Denies paranoia Endo Denies excessive sweating, Denies fatigue, Denies flushing, Denies polydipsia and Denies polyuria Aller/Immun Denies wheezing Physical exam (Primary Care) Vital Signs: Last Vital Signs Pulse 57 02/13/25 16:20 BP 120/64 02/13/25 16:20 Pulse Ox 98 02/13/25 16:20 Oxygen Delivery Method Room Air 02/13/25 16:20 BMI result Body Mass Index 28.2 Tobacco/Smoking Status: Tobacco use Status Tobacco use date assessed 02/13/25 02/13/25 16:33 Patient Tobacco Use Status Former Tobacco user 02/13/25 16:43 Tobacco use type Smokeless Tobacco 02/13/25 16:43 e-Cigarette/Vaping Use Former Use 02/13/25 16:43 Thrive Assessment: Date of Thrive Assessment Date Thrive assessed 02/13/25 02/13/25 16:38 Currently or been in a relationship where the following occur: No concerns reported Const General: cooperative, comfortable, no acute distress, alert and awake; No confusion Orientation/consciousness: oriented to person, oriented to place, patient oriented x3 and No confusion HENDC Head: Yes normocephalic Ears: external ears normal and TM's normal bilaterally Face and sinus: No sinus tenderness Mouth: Normal oral and palatal mucosa present and tongue normal Teeth and gingiva: dentition normal and gingiva normal Throat: Yes posterior oropharynx normal, Yes tonsils normal and Yes uvula midline Eyes Conjunctivae: conjunctivae normal Sclerae: sclerae normal Pupils: Equal, round and reactive pupils present EOM: EOMs intact bilaterally Direct Ophthalmoscopy: No no photophobia Neck Neck: Yes no lymphadenopathy, No tender and Yes no JVD Thyroid: Thyroid normal Carotids: no bruits Chest Chest palpation & inspection: no tenderness Resp Effort & Inspection: normal respiratory effort, no audible wheezes, not labored and no stridor Auscultation: no crackles, no rales, no rhonchi and no wheezes Cardio Jugular venous distension: no JVD Rate: regular rate, not bradycardic and not tachycardic Rhythm: regular rhythm Bruits: no carotid bruits Peripheral pulses: Peripheral pulses 2+ throughout GI Inspection: Yes normal to inspection, No abdominal wall ecchymosis and No visible herniation Palpation (GI): Soft to palpation, nontender, no guarding, not rigid and No hepatosplenomegaly present Auscultation: normoactive bowel sounds General: Yes no CVA tenderness Back/Spine/Pelvis Back: no CVA tenderness and No back tenderness Cervical Spine: cervical ROM normal Thoracic/Lumbar Spine: thoracic and lumbar spine normal to inspection, straight leg raise negative bilaterally, No thoraco-lumbar ROM limited and No lumbar spinal tenderness Skin Lesions: no lesions Rashes: no rashes Wounds: no wounds Neuro General: oriented to person, oriented to place, patient oriented x3, CN's II-XI intact bilaterally and No confusion Cranial nerves: Yes Equal, round and reactive pupils present and Yes Normal accommodation reflex present Cognition (Neuro): normal cognition Speech: No Abnormal speech present Gait exam (Neuro): Normal gait present Motor exam (neuro): 5/5 motor strength present throughout Extrem Right upper extremity: full ROM; no cyanosis Left upper extremity: full ROM; no cyanosis Right lower extremity: no edema Left lower extremity: no edema Psych Appearance: grossly normal Mental Status: mental status grossly normal Affect: normal affect Attitude: cooperative Thought process: Normal thought process present Office Procedures Flu Questionnaire Does the patient have a severe egg allergy?: No Does the patient have severe life threatening allergies?: No Does the patient have a fever or illness today?: No Has the patient ever had Guillain-Lihue Syndrome?: No Has the patient ever had any past reaction to a flu shot?: No Immunizations Fluarix [id number] (PF) 45 mcg (15 mcg x 3)/0.5 mL IM syringe Performing Provider: Tony Garibay PA-C [facility] Administered by: SUSY Castro on 02/13/25 17:39 Dose Route Admin Location Dispensed Lot Number Expiration Date [facility] 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 0.5 mL IM Left Deltoid 0.5 mL [id number] 09/25/25 [id number] [employer] VIS Given Date VIS Provided VIS Publication Date 02/13/25 Single Vaccine 24 Eligibility Eligibility Date Funding Source Not [facility] Eligible 02/13/25 Private Coding Level of Care Code Est Pt Prev Care 18-39y([id number]) Diagnoses Annual physical exam Z00.00 Anxiety F41.9 Primary insomnia F51.01 Insomnia type: primary Iliotibial band syndrome of left side M76.32 Laterality: left Additional Codes CITLALY-7 Assessment Billing - CITLALY-7 Assessment Tool: CITLALY-7 Assessment 42366 ([id number]) Assessment & Plan Assessment & Plan (1) Annual physical exam: Code(s): Z00.00 - Encounter for general adult medical examination without abnormal findings Category: Medical Plan: As per HPI (2) Anxiety: Code(s): F41.9 - Anxiety disorder, unspecified Category: Medical Plan: Patient's CITLALY-7 score positive for anxiety which has been existing condition for him. He is now off of all mental health medication as they have not been effective for him. Since he has stopped smoking his anxiety has been much better in more manageable. 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 Code(s): G47.00 - Insomnia, unspecified Category: Medical Qualifiers: Insomnia type: primary Qualified Code(s): F51.01 - Primary insomnia Plan: Regarding the patient's insomnia, after discussing the ineffectiveness of prior medications (Seroquel, trazodone), a new approach was considered. A trial of zolpidem (Ambien) 5 mg will be prescribed, with a quantity of 7 tablets for as-needed use on nights with significant sleep difficulty. Referral to a sleep specialist was also presented as an alternative. (4) IT band syndrome: Code(s): M76.30 - Iliotibial band syndrome, unspecified leg Category: Medical Qualifiers: Laterality: left Qualified Code(s): M76.32 - Iliotibial band syndrome, left leg Plan: For the patient's leg pain, likely iliotibial (IT) band syndrome or trochanteric bursitis, home management was recommended. This includes IT band stretches, use of NSAIDs like ibuprofen or naproxen, and application of ice or heat. Physical therapy was mentioned as a future option if symptoms do not improve. Orders: Orders Influenza [id number] Immunization 02/13/25 Z23 - Encounter for immunization Medications: New zolpidem 5 mg PO BEDTIME 7 tabs 0RF 7 days F51.01 - Primary insomnia cholecalciferol (vitamin D3) 50 mcg PO DAILY 90 caps 1RF 90 days E55.9 - Vitamin D deficiency, unspecified
== END 2025-02-13 17:46 | disposition home or self-care (01) ==
LOC: HO.HMCH 15:54
PROVIDERS: PCP Internal Medicine; Visit Provider Physician Assistant
DX: Z00.00 Encounter for general adult medical examination without abnormal findings (principal); F41.9 Anxiety disorder, unspecified; F51.01 Primary insomnia; M76.32 Iliotibial band syndrome, left leg

== ENCOUNTER → 2025-02-13 15:53 | Outpatient (BNVA) | payer OTHER, SELFPAY | PROVIDERS: PCP Internal Medicine; Visit Provider Physician Assistant | DX: Z00.00 Encounter for general adult medical examination without abnormal findings (principal); Z23 Encounter for immunization; F41.9 Anxiety disorder, unspecified; F51.01 Primary insomnia; M76.32 Iliotibial band syndrome, left leg | CPT/HCPCS: 90471; 90656; 96127; 99395 ==